=== PATIENT | male | born 1960 | race Caucasian/White ===

== ENCOUNTER 2019-07-11 16:47 | Emergency (ER) | payer OTHER ==
--- NOTE | 2019-07-11 17:44 | ED Physician Documentation ---
History of Present Illness - Stated complaint Stated Complaint: ABD PX, RECTAL BLEED - Chief complaint Chief Complaint: General - History obtained from History obtained from: Patient - History of Present Illness Timing: How many weeks ago (1) Pain level max: 5 Pain level now: 3 - Additonal information Additional information: 59-year-old male presents to the emergency department stating that he has had rectal pain for the past several days. This is accompanied by mostly bright red blood with bowel movements. He states he has had looser bowel movements over the past 2 days. Also having some lower abdominal pain now. No fevers. Nothing makes it better or worse. He is on Plavix at home. He is not feeling lightheaded, shortness of breath or chest pain. Review of Systems Ten Systems: 10 systems reviewed and negative Constitutional: denies: Fever, Chills Nose: denies: Rhinorrhea / runny nose, Congestion GI: denies: Nausea, Vomiting, Hematemesis Skin: denies: Rash Musculoskeletal: denies: Neck pain, Back pain Neurologic: denies: Headache PD PAST MEDICAL HISTORY - Past Medical History Past Medical History: Yes Cardiovascular: Hypertension, High cholesterol : Benign prostate hypertrophy - Past Surgical History Past Surgical History: Yes - Present Medications Home Medications: Ambulatory Orders Medication Instructions Recorded Confirmed Alfuzosin HCl [Alfuzosin HCl ER] 10 mg PO 07/11/19 Bp Med 07/11/19 Clopidogrel [Plavix] 75 mg PO ONCE 07/11/19 07/11/19 Glycerin Adult Supp 1 each IA DAILY PRN #10 supp 07/11/19 [place] 150 mg PO ONCE 07/11/19 07/11/19 Polyethylene Glycol 3350 [Miralax] 17 gm PO DAILY PRN #1 bottle 07/11/19 - Allergies Allergies/Adverse Reactions: Allergies Allergy/AdvReac Type Severity Reaction Status Date / Time No Known Drug Allergies Allergy Verified 07/11/19 16:57 - Social History Does the pt smoke?: No Smoking Status: Never smoker - Immunizations Immunizations are current?: Yes PD ED PE NORMAL - Vitals Vital signs reviewed: Yes - General General: Alert and oriented X 3, No acute distress, Well developed/nourished - HEENT HEENT: Moist mucous membranes - Neck Neck: Supple, no meningeal sign - Cardiac Cardiac: RRR - Respiratory Respiratory: No respiratory distress, Clear bilaterally - Abdomen Abdomen: Normal bowel sounds, Soft, Non tender, Non distended - Male Male : Other (Normal rectal exam other than a mildly inflamed internal hemorrhoid the 5 o'clock position.) - Derm Derm: Warm and dry - Extremities Extremities: No edema - Neuro Neuro: Alert and oriented X 3 - Psych Psych: Normal mood, Normal affect Results - Vitals Vitals: Vital Signs - 24 hr 07/11/19 07/11/19 07/11/19 16:55 18:35 19:13 Temperature 36.6 C Heart Rate 100 61 56 L Respiratory 18 18 18 Rate Blood Pressure 190/119 H 159/96 H 154/111 H O2 Saturation 99 97 98 07/11/19 19:24 Temperature Heart Rate Respiratory Rate Blood Pressure 156/98 H O2 Saturation Oxygen O2 Source Room air - Labs Labs: Laboratory Tests 07/11/19 07/11/19 07/11/19 17:45 17:45 17:45 WBC 9.8 RBC 4.51 L Hgb 14.5 Hct 44.3 MCV 98.2 H MCH 32.2 H MCHC 32.7 RDW 12.5 Plt Count 328 MPV 9.6 Neut # (Auto) 7.1 H Lymph # (Auto) 1.6 [place] # (Auto) 0.7 Eos # (Auto) 0.2 Baso # (Auto) 0.1 Absolute Nucleated RBC 0.00 Nucleated RBC % 0.0 PT 10.1 INR 0.9 APTT 26.0 Sodium 139 Potassium 4.6 Chloride 107 Carbon Dioxide 27 Anion Gap 5.0 L BUN 18 Creatinine 1.3 H Estimated GFR (MDRD) 57 L Glucose 113 H Calcium 9.7 Total Bilirubin 0.6 AST 25 ALT 39 Alkaline Phosphatase 70 Total Protein 7.8 Albumin 4.4 Globulin 3.4 Albumin/Globulin Ratio 1.3 Lipase 39 - Rads (name of study) CT abdomen and pelvis Radiology: Prelim report reviewed, EMP read contemporaneously, See rad report (1. No acute inflammatory process within the abdomen and pelvis. 2. Indeterminate 2.3 cm left renal cyst, possibly representing a hemorrhagic or proteinaceous cyst. Renal ultrasound recommended for further characterization. ) PD MEDICAL DECISION MAKING - ED course Complexity details: reviewed results, re-evaluated patient, considered differential, d/w patient ED course: Patient with what appears to be inflamed hemorrhoid. Will place on MiraLAX. We will also place on suppositories. He will continue sitz bath at home. We will hold steroids at this time. Patient informed of need to follow-up for the left renal cyst. He will obtain a renal ultrasound with his doctor for this. Patient is well-appearing, nontoxic. No anemia. No active bleeding. Patient counseled regarding signs and symptoms for which I believe and urgent re- evaluation would be necessary. Patient with good understanding of and agreement to plan and is comfortable going home at this time This document was made in part using voice recognition software. While efforts are made to proofread this document, sound alike and grammatical errors may occur. Hemorrhoid is not thrombosed and does not need incision and drainage Departure - Departure Disposition: 01 Home, Self Care Clinical Impression: Internal hemorrhoid, bleeding Condition: Good Instructions: ED Hematochezia Stable Follow-Up: Pierre Garibay MD [Primary Care Provider] - Within 1 week Prescriptions: Glycerin Adult Supp 1 each IA DAILY PRN #10 supp PRN Reason: Rectal pain Polyethylene Glycol 3350 [Miralax] 17 gm PO DAILY PRN #1 bottle PRN Reason: Constipation Comments: Follow-up with your doctor for further care. Return if you worsen. You can perform sitz baths to help with the inflammation. We also want to keep your stool soft and avoid constipation. You also have a renal cyst. This needs follow-up with an ultrasound with your doctor. Discharge Date/Time: 07/11/19 19:24
[2019-07-11 18:00] LABS: BASOPHILS # (AUTO) 0.1 10^3/uL (0.0-0.1); BASOPHILS % (AUTO) 0.6 %; EOSINOPHILS # (AUTO) 0.2 10^3/uL (0.0-0.7); EOSINOPHILS % (AUTO) 2.5 %; HGB - HEMOGLOBIN 14.5 g/dL (14.0-18.0); LYMPHOCYTES # (AUTO) 1.6 10^3/uL (1.5-3.5); LYMPHOCYTES % (AUTO) 16.4 %; MEAN CORPUSCULAR HEMOGLOBIN 32.2 pg (27.0-31.0); MEAN CORPUSCULAR HGB CONC 32.7 g/dL (32.0-36.0); MEAN CORPUSCULAR VOLUME 98.2 fL (80.0-94.0); MEAN PLATELET VOLUME 9.6 fL (7.4-11.4); MONOCYTES # (AUTO) 0.7 10^3/uL (0.0-1.0); NEUTROPHILS # (AUTO) 7.1 10^3/uL (1.5-6.6); NEUTROPHILS % (AUTO) 72.8 %; PLT - PLATELET COUNT 328 10^3/uL (130-450); RED BLOOD COUNT 4.51 10^6/uL (4.70-6.10); RED CELL DISTRIBUTION WIDTH 12.5 % (12.0-15.0); WHITE BLOOD COUNT 9.8 x10^3/uL (4.8-10.8)
[2019-07-11 18:06] LABS: INR 0.9 (0.8-1.2); PT - PROTHROMBIN TIME 10.1 secs (9.9-12.6)
[2019-07-11 18:16] LABS: ALBUMIN 4.4 g/dL (3.2-5.5); ALBUMIN/GLOBULIN RATIO 1.3 (1.0-2.2); BILIRUBIN,TOTAL 0.6 mg/dL (0.2-1.0); CALCIUM 9.7 mg/dL (8.5-10.3); CREATININE 1.3 mg/dL (0.6-1.2); TOTAL PROTEIN 7.8 g/dL (6.7-8.2)
[2019-07-11] MEDS ORDERED: IOVERSOL 320 100 ML VIAL IVP ONE ×2 (18:32→19:03)
--- NOTE | 2019-07-11 19:16 | CT Report ---
Reason: lower abd pain, rectal bleeding Procedure Date: 07/11/2019 Accession Number: [id number] / [id number] Procedure: CT - Abdomen/Pelvis W CPT Code: Final Report FULL RESULT: EXAM: CT ABDOMEN AND PELVIS EXAM DATE: 07/11/2019 07:00 PM. CLINICAL HISTORY: Lower abdomen pain, rectal bleeding. COMPARISONS: None. TECHNIQUE: Routine helical CT imaging was performed through the abdomen and pelvis. IV contrast: OPTIRAY 320. Enteric contrast: No. Reconstructions: Coronal and sagittal. In accordance with CT protocol optimization, one or more of the following dose reduction techniques were utilized for this exam: automated exposure control, adjustment of mA and/or KV based on patient size, or use of iterative reconstructive technique. FINDINGS: Lung Bases: Unremarkable. Liver: Normal. No masses. Gallbladder/Bile Ducts: Unremarkable. Spleen: No splenomegaly. There are a few splenic calcifications likely postinflammatory. Pancreas: Normal. Adrenal Glands: Normal. Kidneys: There is a 2.3 cm left renal cyst with attenuation value of 53 HU. A few additional smaller simple cysts are noted bilaterally. No hydronephrosis. Peritoneal Cavity/Bowel: Normal. No free fluid, free air or adenopathy. No masses or acute inflammatory process. The appendix is well visualized and normal. Pelvic Organs: Normal. The bladder and visualized pelvic organs are within normal limits. Vasculature: No aneurysms or other significant abnormality. Bones: No significant abnormality. Other: None. IMPRESSION: 1. No acute inflammatory process within the abdomen and pelvis. 2. Indeterminate 2.3 cm left renal cyst, possibly representing a hemorrhagic or proteinaceous cyst. Renal ultrasound recommended for further characterization. RADIA
[2019-07-11 19:25] VITALS: BP 156/98
== END 2019-07-11 19:24 | disposition home or self-care (01) ==
LOC: ED 16:47
DX: K64.8 Other hemorrhoids (principal); I10 Essential (primary) hypertension
CPT/HCPCS: 36415; 74177; 80053; 83690; 85025; 85610; 85730; 99284; Q9967

== ENCOUNTER 2020-03-17 11:45 | Outpatient (CLI) | payer OTHER | END 2020-03-17 11:46 | disposition home or self-care (01) | LOC: COV 11:45 | PROVIDERS: ATTEND Family Medicine | DX: R05 Cough (principal); R06.02 Shortness of breath; R53.83 Other fatigue; R09.81 Nasal congestion; J34.89 Other specified disorders of nose and nasal sinuses; Z20.822 Contact with and (suspected) exposure to COVID-19 ==

== ENCOUNTER 2020-03-23 08:44 | Inpatient (IN) | payer OTHER ==
--- NOTE | 2020-03-23 09:33 | ED Physician Documentation ---
History of Present Illness - Stated complaint Stated Complaint: SOA - Chief complaint Chief Complaint: Resp - History obtained from History obtained from: Patient - Additonal information Additional information: Patient comes emergency department for chief complaint of shortness of breath for about the last week. Patient states that he has a chronic cough from his GERD, which is actually getting better during the same timeframe, but that his employer was concerned about the cough and had him get seen last week and tested for Covid. Patient states this was negative. Pt states that over the past week, he has been noticing that he can hardly walk 50 feet without becoming severely winded and having to stop and rest. Patient states that he got up to go the bathroom last night and that just walking to the bathroom and back caused him to be so short of breath that he had to sit on the edge of his bed for several minutes and recover. Today, the patient tried to go to work, but when his boss and coworker saw how short of breath he was going around the job site, they told him to come here instead. The patient denies any fevers or chills. No shortness of breath at rest. No chest pain though he does feel somewhat of a discomfort in his substernal area when he ambulates. No pain or swelling in his legs that is unusual. Patient does have a history of DVT previously. The patient denies any sick contacts. He states he is normally fairly healthy and strong. No other complaints at this time. He states this is never happened to him before. Review of Systems Ten Systems: 10 systems reviewed and negative Constitutional: reports: Reviewed and negative Eyes: reports: Reviewed and negative Ears: reports: Reviewed and negative Nose: reports: Reviewed and negative Throat: reports: Reviewed and negative Cardiac: reports: Chest pain / pressure Respiratory: reports: Dyspnea, Cough GI: reports: Reviewed and negative : reports: Reviewed and negative Skin: reports: Reviewed and negative Musculoskeletal: reports: Reviewed and negative Neurologic: reports: Reviewed and negative Psychiatric: reports: Reviewed and negative Endocrine: reports: Reviewed and negative Immunocompromised: reports: Reviewed and negative PD PAST MEDICAL HISTORY - Past Medical History Cardiovascular: Hypertension, High cholesterol : Benign prostate hypertrophy - Past Surgical History Past Surgical History: Yes - Present Medications Home Medications: Ambulatory Orders Medication Instructions Recorded Confirmed Alfuzosin HCl [Alfuzosin HCl ER] 10 mg PO DAILY 07/11/19 03/23/20 Clopidogrel [Plavix] 75 mg PO DAILY 07/11/19 03/23/20 [place] 1,350 mg PO HS 07/11/19 03/23/20 Propranolol [Inderal] 10 mg PO DAILY 03/23/20 03/23/20 amLODIPine [Norvasc] 5 mg PO DAILY 03/23/20 03/23/20 - Allergies Allergies/Adverse Reactions: Allergies Allergy/AdvReac Type Severity Reaction Status Date / Time No Known Drug Allergies Allergy Verified 07/11/19 16:57 - Social History Does the pt smoke?: No Smoking Status: Never smoker Does the pt drink ETOH?: Yes Does the pt have substance abuse?: No - Immunizations Immunizations are current?: Yes PD ED PE NORMAL - Vitals Vital signs reviewed: Yes - General General: Alert and oriented X 3, No acute distress, Well developed/nourished - HEENT HEENT: Atraumatic, PERRL, EOMI, Moist mucous membranes - Neck Neck: Supple, no meningeal sign - Cardiac Cardiac: RRR, No murmur, Strong equal pulses - Respiratory Respiratory: No respiratory distress, Clear bilaterally - Abdomen Abdomen: Soft, Non tender, Non distended - Derm Derm: Normal color, Warm and dry, No rash - Extremities Extremities: No deformity, No edema, No calf tenderness / cord - Neuro Neuro: Alert and oriented X 3, Other (Grossly normal.) - Psych Psych: Normal mood, Normal affect Results - Vitals Vitals: Oxygen O2 Source Nasal cannula - EKG (time done) 1000 Rate: Rate (enter#) (83) Rhythm: NSR Center Point: Normal, Anterior hemiblock Intervals: Normal IA QRS: LVH, Poor R wave progression Ischemia: Normal ST segments, Hyperacute T waves Compare to prior EKG: Old EKG unavailable Computer interpretation: Agree with computer - Labs Labs: Laboratory Tests 03/23/20 03/23/20 03/23/20 09:40 09:40 09:40 WBC 11.8 H RBC 4.68 L Hgb 14.9 Hct 44.5 MCV 95.1 H MCH 31.8 H MCHC 33.5 RDW 12.6 Plt Count 252 MPV 9.6 Neut # (Auto) 9.5 H Lymph # (Auto) 1.2 L [place] # (Auto) 0.8 Eos # (Auto) 0.2 Baso # (Auto) 0.1 Absolute Nucleated RBC 0.00 Nucleated RBC % 0.0 Whole Blood INR 0.9 D-Dimer Anti-Xa Level Sodium 137 Potassium 4.5 Chloride 107 Carbon Dioxide 21 Anion Gap 9.0 BUN 20 Creatinine 1.3 H Estimated GFR (MDRD) 57 L Glucose 114 H Calcium 9.8 Total Bilirubin 1.0 AST 25 ALT 32 Alkaline Phosphatase 88 Troponin I High Sens B-Natriuretic Peptide Total Protein 7.5 Albumin 3.9 Globulin 3.6 Albumin/Globulin Ratio 1.1 Lipase 36 Nasal Adenovirus (PCR) Nasal B. parapertussis DNA (PCR) Nasal Coronavir 229E PCR Nasal Coronavir HKU1 PCR Nasal Coronavir NL63 PCR Nasal Coronavir OC43 PCR Nasal Enterovir/Rhinovir PCR Nasal Influenza B PCR Nasal Influenza A PCR Nasal Parainfluen 1 PCR Nasal Parainfluen 2 PCR Nasal Parainfluen 3 PCR Nasal Parainfluen 4 PCR Nasal RSV (PCR) Nasal B.pertussis DNA PCR Nasal C.pneumoniae (PCR) [place] Human Metapneumo PCR Nasal M.pneumoniae (PCR) Nasal SARS-CoV-2 (PCR) 03/23/20 03/23/20 03/23/20 09:40 09:40 09:40 WBC RBC Hgb Hct MCV MCH MCHC RDW Plt Count MPV Neut # (Auto) Lymph # (Auto) [place] # (Auto) Eos # (Auto) Baso # (Auto) Absolute Nucleated RBC Nucleated RBC % Whole Blood INR D-Dimer 835.4 H Anti-Xa Level Sodium Potassium Chloride Carbon Dioxide Anion Gap BUN Creatinine Estimated GFR (MDRD) Glucose Calcium Total Bilirubin AST ALT Alkaline Phosphatase Troponin I High Sens 69.1 H* B-Natriuretic Peptide 102 H Total Protein Albumin Globulin Albumin/Globulin Ratio Lipase Nasal Adenovirus (PCR) Nasal B. parapertussis DNA (PCR) Nasal Coronavir 229E PCR Nasal Coronavir HKU1 PCR Nasal Coronavir NL63 PCR Nasal Coronavir OC43 PCR Nasal Enterovir/Rhinovir PCR Nasal Influenza B PCR Nasal Influenza A PCR Nasal Parainfluen 1 PCR Nasal Parainfluen 2 PCR Nasal Parainfluen 3 PCR Nasal Parainfluen 4 PCR Nasal RSV (PCR) Nasal B.pertussis DNA PCR Nasal C.pneumoniae (PCR) [place] Human Metapneumo PCR Nasal M.pneumoniae (PCR) Nasal SARS-CoV-2 (PCR) 03/23/20 03/23/2021 12:00 13:18 13:18 WBC RBC Hgb Hct MCV MCH MCHC RDW Plt Count MPV Neut # (Auto) Lymph # (Auto) [place] # (Auto) Eos # (Auto) Baso # (Auto) Absolute Nucleated RBC Nucleated RBC % Whole Blood INR D-Dimer Anti-Xa Level 0.6 Sodium Potassium Chloride Carbon Dioxide Anion Gap BUN Creatinine Estimated GFR (MDRD) Glucose Calcium Total Bilirubin AST ALT Alkaline Phosphatase Troponin I High Sens 62.8 H* B-Natriuretic Peptide Total Protein Albumin Globulin Albumin/Globulin Ratio Lipase Nasal Adenovirus (PCR) NOT DETECTED Nasal B. parapertussis DNA (PCR) NOT DETECTED Nasal Coronavir 229E PCR NOT DETECTED Nasal Coronavir HKU1 PCR NOT DETECTED Nasal Coronavir NL63 PCR NOT DETECTED Nasal Coronavir OC43 PCR NOT DETECTED Nasal Enterovir/Rhinovir PCR NOT DETECTED Nasal Influenza B PCR NOT DETECTED Nasal Influenza A PCR NOT DETECTED Nasal Parainfluen 1 PCR NOT DETECTED Nasal Parainfluen 2 PCR NOT DETECTED Nasal Parainfluen 3 PCR NOT DETECTED Nasal Parainfluen 4 PCR NOT DETECTED Nasal RSV (PCR) NOT DETECTED Nasal B.pertussis DNA PCR NOT DETECTED Nasal C.pneumoniae (PCR) NOT DETECTED [place] Human Metapneumo PCR NOT DETECTED Nasal M.pneumoniae (PCR) NOT DETECTED Nasal SARS-CoV-2 (PCR) NOT DETECTED - Rads (name of study) CXR Radiology: Final report received, EMP read indepedently, See rad report CTA chest Radiology: Final report received, EMP read indepedently, See rad report (Multiple pulmonary emboli.) PD MEDICAL DECISION MAKING - ED course Complexity details: reviewed results, re-evaluated patient, considered differential, d/w patient ED course: The patient was fairly well-appearing, but I was concerned about his story, and feel he should be worked up. Additionally, the patient had been found to have an oxygen saturation of upper 80s in triage, prior to being placed on supplemental oxygen. He was worked up with labs, EKG, and chest x-ray. D-dimer was over 800. As such, pt was With CT angiogram of the chest, which showed multiple bilateral pulmonary emboli. No evidence of right heart strain noted. Some pneumonitis was noted on CT. Patient was given 1.5 mg/kg of Lovenox. I spoke with Dr. Longoria, who did agree to admit the patient to his service. Departure - Departure Disposition: 66 [facility] DC/Xfer Clinical Impression: Pulmonary emboli Qualifiers: Pulmonary embolism type: multiple subsegmental (without acute cor pulmonale) Qualified Code(s): I26.94 - Multiple subsegmental pulmonary emboli without acute cor pulmonale Condition: Serious Discharge Date/Time: 03/23/20 15:02
--- NOTE | 2020-03-23 09:51 | XRAY Report ---
PROCEDURE: Chest 1 View X-Ray INDICATIONS: chest pain TECHNIQUE: One view of the chest was acquired. COMPARISON: FINDINGS: Surgical changes and devices: None. Lungs and pleura: No pleural effusions or pneumothorax. Subtle increased opacification noted in the right lung base. Mediastinum: Mediastinal contours appear normal. Heart size is normal. Bones and chest wall: No suspicious bony lesions. Overlying soft tissues appear unremarkable. IMPRESSION: Subtle increased opacification of the right lung base which could represent atelectasis or pneumonia. Reviewed by: Christy Perez MD, PhD on 03/23/2020 9:50 AM [facility] Approved by: Christy Preez MD, PhD on 03/23/2020 9:50 AM [facility] Station ID: [id number]
[2020-03-23 09:52] LABS: BASOPHILS # (AUTO) 0.1 10^3/uL (0.0-0.1); BASOPHILS % (AUTO) 0.4 %; EOSINOPHILS # (AUTO) 0.2 10^3/uL (0.0-0.7); EOSINOPHILS % (AUTO) 1.6 %; HGB - HEMOGLOBIN 14.9 g/dL (14.0-18.0); LYMPHOCYTES # (AUTO) 1.2 10^3/uL (1.5-3.5); LYMPHOCYTES % (AUTO) 10.2 %; MEAN CORPUSCULAR HEMOGLOBIN 31.8 pg (27.0-31.0); MEAN CORPUSCULAR HGB CONC 33.5 g/dL (32.0-36.0); MEAN CORPUSCULAR VOLUME 95.1 fL (80.0-94.0); MEAN PLATELET VOLUME 9.6 fL (7.4-11.4); MONOCYTES # (AUTO) 0.8 10^3/uL (0.0-1.0); MONOCYTES % (AUTO) 6.8 %; NEUTROPHILS # (AUTO) 9.5 10^3/uL (1.5-6.6); NEUTROPHILS % (AUTO) 80.5 %; PLT - PLATELET COUNT 252 10^3/uL (130-450); RED BLOOD COUNT 4.68 10^6/uL (4.70-6.10); RED CELL DISTRIBUTION WIDTH 12.6 % (12.0-15.0); WHITE BLOOD COUNT 11.8 x10^3/uL (4.8-10.8)
[2020-03-23 10:03] LABS: ALBUMIN 3.9 g/dL (3.2-5.5); ALBUMIN/GLOBULIN RATIO 1.1 (1.0-2.2); CALCIUM 9.8 mg/dL (8.5-10.3); CREATININE 1.3 mg/dL (0.6-1.2); TOTAL PROTEIN 7.5 g/dL (6.7-8.2)
[2020-03-23] MEDS ORDERED: IOVERSOL 320 100 ML VIAL IVP ONE ×2 (10:41→14:08)
[2020-03-23] MEDS ORDERED: ENOXAPARIN 100 MG/ML SYRINGE SUBQ STA (11:21)
--- NOTE | 2020-03-23 11:39 | CT Report ---
PROCEDURE: ANGIO CHEST W/WO INDICATIONS: chest pain, sob, elevated d-dimer CONTRAST: IV CONTRAST: Optiray 320 ml: 80 PO CONTRAST: *NO PO CONTRAST TECHNIQUE: After the administration of intravenous contrast, 2 mm thick sections acquired from the pulmonary api leia to the posterior costophrenic angles. 3-dimensional maximum intensity projection (MIP) coronal a nd sagittal reformats were then acquired through the thorax. For radiation dose reduction, the follow ing was used: automated exposure control, adjustment of mA and/or kV according to patient size. COMPARISON: Chest radiograph dated 03/23/2020 FINDINGS: Image quality: Excellent. Pulmonary arteries: Pulmonary arteries are normal in size. Extensive filling defects are seen in dis carlos bilateral main pulmonary arteries extending to bilateral segmental and subsegmental branches of p ulmonary arteries. Lungs and pleura: Ill-defined patchy hazy groundglass opacities are noted scattered in posterior aspe ct of bilateral upper lobes and right middle lobe as well as posterior medial aspect of right lower l obe. No pleural effusions or pneumothorax. Central and peripheral airways are patent. Mediastinum: Heart size is mildly enlarged, without pericardial effusion. No mediastinal or hilar a denopathy. Thoracic aorta is normal in caliber and enhancement. Esophagus is normal in caliber, wit h a small hiatal hernia. Bones and chest wall: No suspicious bony lesions. Degenerative disc disease throughout thoracic spin e is seen. No compression fracture or spondylolisthesis. The thyroid is normal. No axillary or supr aclavicular adenopathy. Abdomen: Visualized upper abdominal solid organs appear normal in the early arterial phase of enhanc ement. Hepatic steatosis is seen. IMPRESSION: 1. Fairly extensive pulmonary emboli in distal bilateral main pulmonary arteries extending to segment al and subsegmental branches of bilateral pulmonary arteries. No thoracic aortic aneurysm. 2. Scattered groundglass opacities in bilateral lung orr as above, suggestive of scattered areas o f patchy pneumonitis. No pleural effusion or pneumothorax. Airway is patent. 3. Cardiomegaly, no pericardial effusion. No mediastinal or hilar lymphadenopathy by size criteria. 4. Small hiatal hernia and hepatic steatosis. Reviewed by: Сергей Godfrey MD on 03/23/2020 11:37 AM PST Approved by: Сергей Godfrey MD on 03/23/2020 11:37 AM PST Station ID: [id number]
--- NOTE | 2020-03-23 12:21 | Ultrasound Report ---
PROCEDURE: Duplex Ext Veins Bilateral INDICATIONS: Kristin Smith TECHNIQUE: Real-time imaging, as well as color and pulse Doppler interrogation, were performed of the deep veins of both legs from the inguinal ligament to the popliteal fossa. COMPARISON: None FINDINGS: There is chronic appearing nonocclusive eccentric thrombus within the right popliteal vein extending inferiorly into the veins of the calf. Within the left popliteal vein there is acute appear ing fully occlusive thrombus which extends into the calf veins. IMPRESSION: Acute appearing fully occlusive thrombus in the left popliteal vein extending inferiorly into the vei ns of the calf. Chronic appearing nonocclusive eccentric thrombus within the right popliteal vein extending inferiorl y into the veins of the calf. Reviewed by: Man Martinez MD on 03/23/2020 12:20 PM PST Approved by: Man Martinez MD on 03/23/2020 12:20 PM PST Station ID: [id number]
[2020-03-23] MEDS ORDERED: ONDANSETRON 4 MG/2 ML VIAL IVP PRN (13:49)
[2020-03-23 13:51] LABS: C. PNEUMONIAE- RESP PCR PANEL NOT DETECTED
--- NOTE | 2020-03-23 13:57 | HISTORY & PHYSICAL EXAMINATION ---
Chief Complaint - Chief Complaint Chief Complaint: SOB History of Present Illness - Admitted From Admitted From:: Er - History Obtained From Records Reviewed: [facility] History obtained from: pt Exam Limitations: now - History of Present Illness HPI Comment/Other: This is 59 years old male with a past medical history of hypertension, hyperlipidemia, GERD, history of right lower extremity DVT, BPH, Bipolar, Who present to ER complain shortness of breathing. Patient reported he has shortness of breathing about couple weeks but this 2- 3 days he feels very short of breathing, even difficulty to go to the bathroom. He denies fever or chill, Chest pain. he report he have chronic cough from his GERD. His COVID-19 test is negative. He report reported 10 years ago he had a DVT on his right lower extremity, But the patient has no any anticoagulation medicine in his home medication list. Routine laboratory tests that show he had a elevated troponin but continued troponin flat, EKG did not the suggestion of myocardial ischemia or ST variation. Creatinine 1.3 is at his baseline. Patient had slightly elevated WBC at 11, D-dimer 830. CTA of the chest show Fairly extensive Pulmonary emboli in distal bilaterally main pulmonary artery extending to Segmental and subsegmental branches of the bilateral pulmonary arteries, Sca ttered area of patched pneumonitis, chest x-ray indicated pneumonia. Ultrasound of bilaterally Lower extremity Show chronic right lower extremity DVT and an acute left lower extremity DVT. Given above patient medical condition, hospitalist team was consulted for admission. Discussed the care goal with the patient, patient requests full code History - Past Medical History Cardiovascular: reports: Hypertension, High cholesterol : reports: Benign prostate hypertrophy MRSA Hx?: No - Family & Social History Family History: Mother: Alive and Well, Father: Family History Comment/Other: Patient reported he does not know his biological father medical history, he report his mother is still alive And healthy Social History Notes: Patient denies history of cigarette smoking, alcohol a buse, drug addiction, he reported he with 3 children, he lives in [facility] Meds/Allgy - Home Medications Home Medications: Ambulatory Orders Medication Instructions Recorded Confirmed Alfuzosin HCl [Alfuzosin HCl ER] 10 mg PO DAILY 07/11/19 03/23/20 Clopidogrel [Plavix] 75 mg PO DAILY 07/11/19 03/23/20 [place] 1,350 mg PO HS 07/11/19 03/23/20 Propranolol [Inderal] 10 mg PO DAILY 03/23/20 03/23/20 amLODIPine [Norvasc] 5 mg PO DAILY 03/23/20 03/23/20 - Allergies Allergies/Adverse Reactions: Allergies Allergy/AdvReac Type Severity Reaction Status Date / Time No Known Drug Allergies Allergy Verified 07/11/19 16:57 Review of Systems - Constitutional Constitutional: reports: Weakness. denies: Fatigue, Fever, Chills, Malaise, Poor appetite, Diaphoresis, Night sweats - Eyes Eyes: denies: Pain, Blurred vision, Field loss, Vision loss - Ears, Nose & Throat Ears, Nose & Throat: denies: Ear pain, Vertigo, Nosebleeds, Mouth lesions, Bleeding gums - Cardiovascular Cariovascular: reports: Exertional dyspnea, Decr. exercise tolerance. denies: Irregular heart rate, Palpitations, Chest pain, Edema, Lightheadedness, Syncope - Respiratory Respiratory: reports: Cough, SOB with exertion. denies: Sputum production, Wheezing, Snoring, Hemoptysis, Orthopnea, SOB at rest - Gastrointestinal Gastrointestinal: denies: Abdominal pain, Constipation, Diarrhea, Change in bowel habits, Rectal bleeding, Black stools, Bloody stools, Nausea, Vomiting, Bile emesis, [place] blood emesis - Genitourinary Genitourinary: denies: Dysuria, Urgency, Incontinence - Musculoskeletal Musculoskeletal: denies: Muscle pain, Muscle aches, Limited range of motion - Integumentary Integumentary: denies: Rash, Lesions, Pigment changes - Neurological Neurological: denies: Focal weakness, Headache, Dizziness, Numbness, Pre- existing deficit, Abnormal gait, Seizures, Incoordination, Slurred speech - Psychiatric Psychiatric: denies: Depression, Suicidal, Delusions - Endocrine Endocrine: denies: Polyuria, Polyphagia - Hematologic/Lymphatic Hematologic/Lymphatic: denies: Anemia, Petechiae Prior Level of Functionality: Patient is independent Exam - Vital Signs Vital Signs: Vital Signs x48h Temp Pulse Resp BP Pulse Ox 03/23/20 13:00 99 23 144/94 H 92 03/23/20 11:03 82 22 199/135 H 95 03/23/20 09:04 85 18 172/120 H 96 03/23/20 08:48 37.3 C 86 26 H 179/133 H 89 L - Physical Exam General Appearance: positive: No acute distress, Alert. negative: Lethargic Eyes Bilateral: positive: Normal inspection, PERRL, No lid inflammation ENT: positive: ENT inspection nml, No signs of dehydration. negative: Purulent nasal drainage Neck: positive: Nml inspection, Trachea midline. negative: Thyromegaly, Tracheal deviation Respiratory: positive: Chest non-tender, Rhonchi. negative: Breath sounds nml, Wheezes, Rales Cardiovascular: positive: Regular rate & rhythm. negative: No murmur, Tachycardia, Bradycardia, Systolic murmur, Diastolic murmur Peripheral Pulses: positive: 2+ Abdomen: positive: Non-tender, Nml bowel sounds, No distention. negative: Ten derness, Guarding, Rebound Back: positive: Nml inspection. negative: CVA tenderness (R), CVA tenderness (L) Skin: positive: Color nml, Warm, Dry. negative: Cyanosis, Diaphoresis, Pallor Extremities: positive: Non-tender, Full ROM, Nml appearance. negative: Pedal edema Neurologic/Psychiatric: positive: Oriented x3, Motor nml, Sensation nml, Mood/affect nml. negative: Weakness, Sensory loss, Facial droop, Slurred/abnml speech, Depressed mood/affect Sepsis Event Note (H) - Evaluation Current Stage of Sepsis: Ruled out Conclusion/Plan - Problem List (1) Respiratory failure with hypoxia Conclusion/Plan: Patient clinically show shortness of breathing, COVID-19 test is negative, CTA showed extensive PE and with pneumonia. We will treat heparin drip for PE, with antibiotics for pneumonia. Continue supplemental oxygen as needed, Continue vital signs and laboratory phlebotomist (2) Pulmonary emboli Conclusion/Plan: CTA show extensive PE in main pulmonary artery, echo study show patient has no right heart strain. Ultrasound of bilateral lower extremities show left-sided has an acute DVT and in the right side show chronic DVT. Patient has a history of right lower extremity DVT in the past. Patient may need anticoagulation study as outpatient setting. Patient denies chest pain. We will use heparin drip vero ated for pulmonary embolism. Continue lab and vital signs monitor patient. Qualifiers: Pulmonary embolism type: multiple subsegmental (without acute cor pulmonale) Qualified Code(s): I26.94 - Multiple subsegmental pulmonary emboli without acute cor pulmonale (3) Pneumonia Conclusion/Plan: Patient had slightly elevated WBC, clinical patient has showed shortness of breathing, Patient had 92% sats on 4 L oxygen, CTA and chest x-ray both show patient has Pneumonia. We will treat the patient with community acquired pneumonia with azithromycin and Rocephin, supplemental oxygen as needed, continue laboratory and vital signs monitor patient (4) Elevated troponin Conclusion/Plan: Patient had elevated troponin, repeat troponin is reduced and the flat, EKG does not suggestion myocardial ischemia or ST variation. Patient denies chest pain. It is likely distress from patient PE. Continue telemetry and vital signs monitor (5) HTN (hypertension) Conclusion/Plan: Patient had elevated blood pressure, we will resume home blood pressure medicine and vital signs monitor (6) Bipolar 1 disorder Conclusion/Plan: Patient has a history of bipolar, we will resume patient home medication lithium, check lithium concentration is in the therapeutic range (7) GERD (gastroesophageal reflux disease) Conclusion/Plan: Patient has a history of GERD, we will start with Protonix - Lab Results Fish Bones: 03/23/20 09:40 03/23/20 09:40 Core Measures - Anticipated LOS I expect patient to be DC'd or transferred within 96 hours.: Yes - DVT/VTE - Prophylaxis VTE/DVT Device ordered at admit?: Yes VTE/DVT Prophylaxis med ordered at admit?: Yes
[2020-03-23] MEDS ORDERED: amLODIPine 5 MG TABLET PO SCH (14:00)
[2020-03-23] MEDS ORDERED: ALBUTEROL NEB 2.5 MG/3 ML INH PRN (15:28)
[2020-03-23 15:29] LABS: LITHIUM 0.61 mmol/L
--- NOTE | 2020-03-23 16:45 | PHARMACY PROGRESS NOTE ---
- Best Possible Medication History Admit Date and Time: 03/23/20 7047 Processed by: Pharmacy Medication History completed: Yes Patient Interview: Pt interview ONLY source (INTERVIEWED PATIENT MYSELF) Patient able to review medication list with me and clarify medication. Am lodipine and clopidegrel are taken daily. Does not take Miralax. As the person ultimately responsible for medication therapy, providers are able to order a medication from an existing home medication list in [facility] via the "Reconcile Routine" prior to Confirmation of that medication by aviation support equipment repairer. Such practice is discouraged except when the physician, in their clinical judgment, deems that a medical need exists for a medication without regard to previous use.
[2020-03-23] MEDS: HEPARIN 25000UNITS/500ML (D5W) 25,000 UNIT/500 ML BAG IV SCH (17:14)
[2020-03-23] MEDS: SODIUM CHLORIDE FLUSH 0.9% 10 ML SYRINGE IVP SCH (17:19)
[2020-03-23] MEDS: PANTOPRAZOLE 40 MG TABLET PO SCH (18:12)
[2020-03-23] MEDS: AZITHROMYCIN INJ 500 MG in SODIUM CHLORIDE 0.9% 250 ML IV SCH (18:24)
[2020-03-23] MEDS: PROPRANOLOL 10 MG TABLET PO SCH (18:24)
[2020-03-23] MEDS: SODIUM CHLORIDE FLUSH 0.9% 10 ML SYRINGE IVP PRN ×2 (18:24→19:50)
[2020-03-23] MEDS: LITHIUM 150 MG CAPSULE PO SCH (20:44)
[2020-03-24] MEDS: SODIUM CHLORIDE FLUSH 0.9% 10 ML SYRINGE IVP SCH ×3 (00:20→17:11)
[2020-03-24] MEDS: PANTOPRAZOLE 40 MG TABLET PO SCH (06:39)
[2020-03-24] MEDS: ACETAMINOPHEN 325 MG TABLET PO PRN ×2 (06:39→14:10)
[2020-03-24 06:48] LABS: BASOPHILS # (AUTO) 0.1 10^3/uL (0.0-0.1); BASOPHILS % (AUTO) 0.5 %; EOSINOPHILS # (AUTO) 0.2 10^3/uL (0.0-0.7); EOSINOPHILS % (AUTO) 2.6 %; HGB - HEMOGLOBIN 13.9 g/dL (14.0-18.0); LYMPHOCYTES # (AUTO) 1.8 10^3/uL (1.5-3.5); LYMPHOCYTES % (AUTO) 20.1 %; MEAN CORPUSCULAR HEMOGLOBIN 31.7 pg (27.0-31.0); MEAN CORPUSCULAR HGB CONC 33.3 g/dL (32.0-36.0); MEAN CORPUSCULAR VOLUME 95.4 fL (80.0-94.0); MEAN PLATELET VOLUME 9.9 fL (7.4-11.4); MONOCYTES # (AUTO) 0.7 10^3/uL (0.0-1.0); MONOCYTES % (AUTO) 8.1 %; NEUTROPHILS # (AUTO) 6.2 10^3/uL (1.5-6.6); NEUTROPHILS % (AUTO) 68.3 %; PLT - PLATELET COUNT 249 10^3/uL (130-450); RED BLOOD COUNT 4.38 10^6/uL (4.70-6.10); RED CELL DISTRIBUTION WIDTH 12.6 % (12.0-15.0); WHITE BLOOD COUNT 9.2 x10^3/uL (4.8-10.8)
[2020-03-24 06:52] LABS: CALCIUM 9.5 mg/dL (8.5-10.3); CREATININE 1.4 mg/dL (0.6-1.2)
[2020-03-24] MEDS ORDERED: PANTOPRAZOLE 40 MG TABLET PO SCH (07:00)
[2020-03-24] MEDS: PROPRANOLOL 10 MG TABLET PO SCH (08:44)
[2020-03-24] MEDS: cefTRIAXone 2 GM in SODIUM CHLORIDE 0.9% MINIBAG 100 ML IV SCH (08:45)
[2020-03-24] MEDS: ALFUZOSIN HCL 10 MG PO SCH (08:55)
[2020-03-24] MEDS ORDERED: PROPRANOLOL 10 MG TABLET PO SCH (09:00)
[2020-03-24] MEDS ORDERED: SODIUM CHLORIDE 0.9% 1,000 ML IV SCH (09:00)
[2020-03-24] MEDS: AZITHROMYCIN INJ 500 MG in SODIUM CHLORIDE 0.9% 250 ML IV SCH (09:28)
[2020-03-24] MEDS: oxyCODONE 5 MG TABLET PO PRN ×2 (09:30→17:19)
[2020-03-24] MEDS: HEPARIN 25000UNITS/500ML (D5W) 25,000 UNIT/500 ML BAG IV SCH (14:07)
--- NOTE | 2020-03-24 15:37 | PROVIDER PROGRESS NOTE ---
Assessment/Plan - Problem List (1) Respiratory failure with hypoxia Assessment/Plan: 03/24 Patient reported he is shortness of breathing is better, He feel significantly reduced his shortness of breathing. But the patient still need 4 liter of O2 oxygen to support 92% sats. Patient is not Tachypneic. WBC become normal Range. We will continue use heparin drip for PE, continue with antibiotics for pneumonia Patient clinically show shortness of breathing, COVID-19 test is negative, CTA showed extensive PE and with pneumonia. We will treat heparin drip for PE, with antibiotics for pneumonia. Continue supplemental oxygen as needed, Continue vital signs and blood bank laboratory technician (2) Pulmonary emboli Conclusion/Plan: 113, patient feels better for his breathing. We will continue heparin drip, continue supplemental oxygen as needed CTA show extensive PE in main pulmonary artery, echo study show patient has no right heart strain. Ultrasound of bilateral lower extremities show left-sided has an acute DVT and in the right side show chronic DVT. Patient has a history of right lower extremity DVT in the past. Patient may need anticoagulation study as outpatient setting. Patient denies chest pain. We will use heparin drip treated for pulmonary embolism. Continue lab and vital signs monitor patient. (3) Pneumonia Conclusion/Plan: 113, We will continue antibiotics, continue supplement monitor oxygen as needed Patient had slightly elevated WBC, clinical patient has showed shortness of breathing, Patient had 92% sats on 4 L oxygen, CTA and chest x-ray both show patient has Pneumonia. We will treat the patient with community acquired pneumonia with azithromycin and Rocephin, supplemental oxygen as needed, continue laboratory and vital signs monitor patient (4) Elevated troponin Conclusion/Plan: Patient had elevated troponin, repeat troponin is reduced and the flat, EKG does not suggestion myocardial ischemia or ST variation. Patient denies chest pain. It is likely distress from patient PE. Continue telemetry and vital signs monitor (5) HTN (hypertension) Conclusion/Plan: Patient had elevated blood pressure, we will resume home blood pressure medicine and vital signs monitor (6) Bipolar 1 disorder Conclusion/Plan: Patient has a history of bipolar, we will resume patient home medication lithium, check lithium concentration is in the therapeutic range (7) GERD (gastroesophageal reflux disease) Conclusion/Plan: Patient has a history of GERD, we will start with Protonix (2) Pulmonary emboli Qualifiers: Pulmonary embolism type: multiple subsegmental (without acute cor pulmonale) Qualified Code(s): I26.94 - Multiple subsegmental pulmonary emboli without acute cor pulmonale - Current Meds Current Meds: Current Medications Generic Name Dose Route Start Last Admin Trade Name Freq PRN Reason Stop Dose Admin Acetaminophen 650 mg 03/23/20 13:49 03/24/20 14:10 Acetaminophen 325 Mg Tablet PO 650 mg Q4HR PRN Administration Pain 1 to 4 Heparin Sodium/Dextrose 25,000 unit in 500 mls @ 28.849 mls/hr 03/23/20 17:00 03/24/20 14:07 IV 11 unit/kg/hr .[id number] SHANNON 21.156 mls/hr Administration Protocol 15 UNIT/KG/HR Azithromycin 500 mg/ Sodium 250 mls @ 250 mls/hr 03/23/20 17:53 03/24/20 11:25 Chloride IV 03/25/20 09:59 Infused DAILY SHANNON Infusion Ceftriaxone Sodium 2 gm/ 100 mls @ 200 mls/hr 03/24/20 09:00 03/24/20 09:20 Sodium Chloride IV 03/28/20 09:29 Infused DAILY SHANNON Infusion Sodium Chloride 1,000 mls @ 83.333 mls/hr 03/24/20 09:00 03/24/20 08:45 Normal Saline 0.9% IV 03/24/20 20:59 83.333 mls/hr .Q12H SHANNON Administration [place] Carbonate 1,350 mg 03/23/20 21:00 03/23/20 20:44 [place] 150 Mg Capsule PO 1,350 mg HS SHANNON Administration Non-Formulary Medication 10 mg 03/24/20 09:00 03/24/20 08:55 Alfuzosin Hcl [Alfuzosin Hcl Er] PO Not Given DAILY SHANNON Oxycodone HCl 5 mg 03/24/20 09:14 03/24/20 09:30 Oxycodone 5 Mg Tablet PO 5 mg Q4HR PRN Administration PAIN Pantoprazole Sodium 40 mg 03/23/20 17:33 03/24/20 06:39 Pantoprazole 40 Mg Tablet PO 40 mg QDAC SHANNON Administration Propranolol HCl 10 mg 03/23/20 18:05 03/24/20 08:44 Propranolol 10 Mg Tablet PO 10 mg DAILY SHANNON Administration Sodium Chloride 10 ml 03/23/20 13:49 03/23/20 19:50 Sodium Chloride Flush 0.9% 10 Ml Syringe IVP 10 ml PRN PRN Administration NEEDED PER PROVIDER ORDERS Sodium Chloride 10 ml 03/23/20 17:00 03/24/20 08:45 Sodium Chloride Flush 0.9% 10 Ml Syringe IVP 10 ml 0100,0900,1700 SHANNON Administration - Lab Result Fish Bone Diagrams: 03/24/20 06:15 03/24/20 06:15 - Additional Planning My Orders: My Active Orders 03/23/20 15:28 Nebulizer/MDI Tx. [RC] .Q4PRN Resp Teach Nebulizer/MDI [RC] .ONCE Albuterol 2.5 mg INH RTQ4H PRN 03/23/20 17:00 Heparin 70584HOSUX/500Ml (D5w) 25,000 unit in 500 ml IV 15 unit/kg/hr Sodium Chloride Flush 0.9% [Normal Saline Flush 0.9%] 10 ml IVP 0100,0900,1700 03/23/20 17:33 Pantoprazole [Protonix] 40 mg PO QDAC 03/23/20 17:53 Azithromycin Inj [Zithromax Inj] 500 mg Sodium Chloride 0.9% [Normal Saline 0.9%] 250 ml IV DAILY 03/23/20 18:05 Propranolol [Inderal] 10 mg PO DAILY 03/23/20 18:29 CULTURE, BLOOD #1 [RM] Routine 03/23/20 18:34 CULTURE, BLOOD #2 [RM] Routine 03/23/20 21:00 [place] 1,350 mg PO HS 03/24/20 09:00 Alfuzosin HCl [Alfuzosin HCl ER] 10 mg PO DAILY Sodium Chloride 0.9% [Normal Saline 0.9%] 1,000 ml IV 83.333 mls/hr cefTRIAXone [Rocephin] 2 gm Sodium Chloride 0.9% Minibag [Normal Saline 0.9% Minibag] 100 ml IV DAILY 03/24/20 09:14 oxyCODONE [Roxicodone] 5 mg PO Q4HR PRN 03/24/20 19:15 Anti Xa [FACTOR XA] [COAG] Routine 03/25/20 05:00 BMP - BASIC METABOLIC PANEL [CHEM] DAILYLAB CBC - COMP BLD CT W/AUTO DIFF [HEME] DAILYLAB 01/15/21 05:00 BMP - BASIC METABOLIC PANEL [CHEM] DAILYLAB CBC - COMP BLD CT W/AUTO DIFF [HEME] DAILYLAB 03/27/20 05:00 BMP - BASIC METABOLIC PANEL [CHEM] DAILYLAB CBC - COMP BLD CT W/AUTO DIFF [HEME] DAILYLAB 03/28/20 05:00 BMP - BASIC METABOLIC PANEL [CHEM] DAILYLAB CBC - COMP BLD CT W/AUTO DIFF [HEME] DAILYLAB Subjective - Subjective Patient Reports: Feeling Better Objective Vital Signs: Vital Signs - 24 hr 03/23/20 03/24/20 03/24/20 19:55 01:00 06:11 Temperature 36.6 C 36.9 C 36.7 C Heart Rate [ 81 72 63 Monitoring electrodes] Respiratory 18 20 18 Rate Blood Pressure 127/88 H 141/93 H 144/87 H [Right Brachial artery] O2 Saturation 94 94 90 L 03/24/20 03/24/20 03/24/20 06:42 07:53 13:00 Temperature 36.4 C L 36.6 C Heart Rate [ 70 76 Monitoring electrodes] Respiratory 20 22 21 Rate Blood Pressure 135/99 H 138/94 H [Right Brachial artery] O2 Saturation 92 92 91 L Oxygen O2 Source Nasal cannula I&O (Last 24 Hrs): Intake and Output Totals x24h 03/22/20 03/23/20 03/24/20 23:59 23:59 23:59 Intake Total 558.842 9027.990 Output Total 2500 1250 Balance -1776.425 5.990 General: Alert, Oriented x3, Cooperative, No acute distress HEENT: Atraumatic Neck: Supple Lymphatic: no adenopathy Neuro: Alert, Non Focal, Oriented Times 3 Cardiovascular: Regular rate, Normal S1, Normal S2 Respiratory: Chest non-tender, No respiratory distress, Breath sounds nml Abdomen: Normal bowel sounds, Soft, No tenderness Extremities: Normal pulses Skin: No breakdown - Results Results: Laboratory Results WBC 9.2 x10^3/uL (4.8-10.8) 03/24/20 06:15 RBC 4.38 10^6/uL (4.70-6.10) L 03/24/20 06:15 Hgb 13.9 g/dL (14.0-18.0) L 03/24/20 06:15 Hct 41.8 % (42.0-52.0) L 03/24/20 06:15 MCV 95.4 fL (80.0-94.0) H 03/24/20 06:15 MCH 31.7 pg (27.0-31.0) H 03/24/20 06:15 MCHC 33.3 g/dL (32.0-36.0) 03/24/20 06:15 RDW 12.6 % (12.0-15.0) 03/24/20 06:15 Plt Count 249 10^3/uL (130-450) 03/24/20 06:15 MPV 9.9 fL (7.4-11.4) 03/24/20 06:15 Neut # (Auto) 6.2 10^3/uL (1.5-6.6) 03/24/20 06:15 Lymph # (Auto) 1.8 10^3/uL (1.5-3.5) 03/24/20 06:15 [place] # (Auto) 0.7 10^3/uL (0.0-1.0) 03/24/20 06:15 Eos # (Auto) 0.2 10^3/uL (0.0-0.7) 03/24/20 06:15 Baso # (Auto) 0.1 10^3/uL (0.0-0.1) 03/24/20 06:15 Absolute Nucleated RBC 0.00 x10^3/uL 03/24/20 06:15 Nucleated RBC % 0.0 /100WBC 03/24/20 06:15 Whole Blood INR 0.9 (0.8-1.2) 03/23/20 09:40 D-Dimer 835.4 ng/mL (200.0-255.0) H 03/23/20 09:40 Anti-Xa Level 0.5 U/mL (-0.7) 03/24/20 13:39 Sodium 140 mmol/L (135-145) 03/24/20 06:15 Potassium 3.9 mmol/L (3.5-5.0) 03/24/20 06:15 Chloride 106 mmol/L (101-111) 03/24/20 06:15 Carbon Dioxide 21 mmol/L (21-32) 03/24/20 06:15 Anion Gap 13.0 (6-13) 03/24/20 06:15 BUN 20 mg/dL (6-20) 03/24/20 06:15 Creatinine 1.4 mg/dL (0.6-1.2) H 03/24/20 06:15 Estimated GFR (MDRD) 52 (>89) L 03/24/20 06:15 Glucose 119 mg/dL (70-100) H 03/24/20 06:15 Lactic Acid 1.3 mmol/L (0.5-2.2) 03/23/20 15:46 Calcium 9.5 mg/dL (8.5-10.3) 03/24/20 06:15 Total Bilirubin 1.0 mg/dL (0.2-1.0) 03/23/20 09:40 AST 25 IU/L (10-42) 03/23/20 09:40 ALT 32 IU/L (10-60) 03/23/20 09:40 Alkaline Phosphatase 88 IU/L (42-121) 03/23/20 09:40 Troponin I High Sens 62.8 ng/L (2.3-19.7) H* 03/23/20 13:18 B-Natriuretic Peptide 102 pg/mL (5-100) H 03/23/20 09:40 Total Protein 7.5 g/dL (6.7-8.2) 03/23/20 09:40 Albumin 3.9 g/dL (3.2-5.5) 03/23/20 09:40 Globulin 3.6 g/dL (2.1-4.2) 03/23/20 09:40 Albumin/Globulin Ratio 1.1 (1.0-2.2) 03/23/20 09:40 Lipase 36 U/L (22-51) 03/23/20 09:40 Nasal Adenovirus (PCR) NOT DETECTED 03/23/20 12:00 Nasal B. parapertussis DNA (PCR) NOT DETECTED 03/23/20 12:00 Nasal Coronavir 229E PCR NOT DETECTED 03/23/20 12:00 Nasal Coronavir HKU1 PCR NOT DETECTED 03/23/20 12:00 Nasal Coronavir NL63 PCR NOT DETECTED 03/23/20 12:00 Nasal Coronavir OC43 PCR NOT DETECTED 03/23/20 12:00 Nasal Enterovir/Rhinovir PCR NOT DETECTED 03/23/20 12:00 Nasal Influenza B PCR NOT DETECTED 03/23/20 12:00 Nasal Influenza A PCR NOT DETECTED 03/23/20 12:00 Nasal Parainfluen 1 PCR NOT DETECTED 03/23/20 12:00 Nasal Parainfluen 2 PCR NOT DETECTED 03/23/20 12:00 Nasal Parainfluen 3 PCR NOT DETECTED 03/23/20 12:00 Nasal Parainfluen 4 PCR NOT DETECTED 03/23/20 12:00 Nasal RSV (PCR) NOT DETECTED 03/23/20 12:00 Nasal B.pertussis DNA PCR NOT DETECTED 03/23/20 12:00 Nasal C.pneumoniae (PCR) NOT DETECTED 03/23/20 12:00 [place] Human Metapneumo PCR NOT DETECTED 03/23/20 12:00 Nasal M.pneumoniae (PCR) NOT DETECTED 03/23/20 12:00 Nasal SARS-CoV-2 (PCR) NOT DETECTED 03/23/20 12:00 Last Dose Date Not Reportable 03/23/20 14:53 Last Dose Time Not Reportable 03/23/20 14:53 [place] 0.61 mmol/L 03/23/20 14:53 Sepsis Event Note (H) - Evaluation Current Stage of Sepsis: Ruled out ABX Reporting Has patient been on IV antibiotics over the past 48 hours?: Yes Current Medications - Current Medications Current Medications: Active Medications Acetaminophen (Acetaminophen 325 Mg Tablet) 650 mg PO Q4HR PRN PRN Reason: Pain 1 to 4 Last Admin: 03/24/20 14:10 Dose: 650 mg Documented by: Albuterol (Albuterol Neb 2.5 Mg/3 Ml) 2.5 mg INH RTQ4H PRN PRN Reason: Wheezing Heparin Sodium (Porcine) (Heparin 1,000 Unit/Ml Vial) 2,400 unit 25 unit/kg (2400 unit) IVP Q6H PRN PRN Reason: ANTI-XA < 0.2 Heparin Sodium/Dextrose () 25,000 unit in 500 mls @ 28.849 mls/hr IV .[id number] SHANNON; Protocol Last Admin: 03/24/20 14:07 Dose: 11 unit/kg/hr, 21.156 mls/hr Documented by: Azithromycin 500 mg/ Sodium (Chloride) 250 mls @ 250 mls/hr IV DAILY [facility] Stop: 03/25/20 09:59 Last Infusion: 03/24/20 11:25 Dose: Infused Documented by: Ceftriaxone Sodium 2 gm/ (Sodium Chloride) 100 mls @ 200 mls/hr IV DAILY [facility] Stop: 03/28/20 09:29 Last Infusion: 03/24/20 09:20 Dose: Infused Documented by: Sodium Chloride (Normal Saline 0.9%) 1,000 mls @ 83.333 mls/hr IV .Q12H [facility] Stop: 03/24/20 20:59 Last Admin: 03/24/20 08:45 Dose: 83.333 mls/hr Documented by: [place] Carbonate ([place] 150 Mg Capsule) 1,350 mg PO HS [facility] Last Admin: 03/23/20 20:44 Dose: 1,350 mg Documented by: Non-Formulary Medication (Alfuzosin Hcl [Alfuzosin Hcl Er]) 10 mg PO DAILY [facility] Last Admin: 03/24/20 08:55 Dose: Not Given Documented by: Ondansetron HCl (Ondansetron 4 Mg/2 Ml Vial) 4 mg IVP Q6HR PRN PRN Reason: Nausea / Vomiting Oxycodone HCl (Oxycodone 5 Mg Tablet) 5 mg PO Q4HR PRN PRN Reason: PAIN Last Admin: 03/24/20 09:30 Dose: 5 mg Documented by: Pantoprazole Sodium (Pantoprazole 40 Mg Tablet) 40 mg PO QDAC [facility] Last Admin: 03/24/20 06:39 Dose: 40 mg Documented by: Propranolol HCl (Propranolol 10 Mg Tablet) 10 mg PO DAILY [facility] Last Admin: 03/24/20 08:44 Dose: 10 mg Documented by: Sodium Chloride (Sodium Chloride Flush 0.9% 10 Ml Syringe) 10 ml IVP PRN PRN PRN Reason: NEEDED PER PROVIDER ORDERS Last Admin: 03/23/20 19:50 Dose: 10 ml Documented by: Sodium Chloride (Sodium Chloride Flush 0.9% 10 Ml Syringe) 10 ml IVP 0100,0900,1700 [facility] Last Admin: 03/24/20 08:45 Dose: 10 ml Documented by: Alfuzosin HCl [Alfuzosin HCl ER] 10 mg PO DAILY 07/11/19 Clopidogrel [Plavix] 75 mg PO DAILY 07/11/19 [place] 1,350 mg PO HS 07/11/19 Propranolol [Inderal] 10 mg PO DAILY 03/23/20 amLODIPine [Norvasc] 5 mg PO DAILY 03/23/20
[2020-03-24] MEDS: LITHIUM 150 MG CAPSULE PO SCH (20:05)
[2020-03-25] MEDS: SODIUM CHLORIDE FLUSH 0.9% 10 ML SYRINGE IVP SCH ×3 (00:21→15:24)
[2020-03-25] MEDS: guaiFENesin/CODEINE 5 ML UDC PO PRN ×3 (00:26→20:16)
[2020-03-25 05:07] LABS: BASOPHILS % (AUTO) 0.4 %; EOSINOPHILS # (AUTO) 0.3 10^3/uL (0.0-0.7); EOSINOPHILS % (AUTO) 2.6 %; LYMPHOCYTES # (AUTO) 1.8 10^3/uL (1.5-3.5); LYMPHOCYTES % (AUTO) 18.3 %; MEAN CORPUSCULAR HEMOGLOBIN 31.1 pg (27.0-31.0); MEAN CORPUSCULAR HGB CONC 31.8 g/dL (32.0-36.0); MEAN CORPUSCULAR VOLUME 97.8 fL (80.0-94.0); MONOCYTES # (AUTO) 0.8 10^3/uL (0.0-1.0); MONOCYTES % (AUTO) 8.1 %; NEUTROPHILS % (AUTO) 69.9 %; PLT - PLATELET COUNT 254 10^3/uL (130-450); RED BLOOD COUNT 4.18 10^6/uL (4.70-6.10); RED CELL DISTRIBUTION WIDTH 12.8 % (12.0-15.0); WHITE BLOOD COUNT 10.1 x10^3/uL (4.8-10.8)
[2020-03-25 05:12] LABS: CALCIUM 9.3 mg/dL (8.5-10.3); CREATININE 1.4 mg/dL (0.6-1.2)
[2020-03-25] MEDS: PANTOPRAZOLE 40 MG TABLET PO SCH (06:37)
[2020-03-25] MEDS: PROPRANOLOL 10 MG TABLET PO SCH (09:11)
[2020-03-25] MEDS: cefTRIAXone 2 GM in SODIUM CHLORIDE 0.9% MINIBAG 100 ML IV SCH (09:11)
[2020-03-25] MEDS: SODIUM CHLORIDE 0.9% 1,000 ML IV SCH ×2 (09:11→20:24)
[2020-03-25] MEDS: polyethylene glycoL 3350 17 GM PACKET PO SCH (09:50)
[2020-03-25] MEDS: AZITHROMYCIN INJ 500 MG in SODIUM CHLORIDE 0.9% 250 ML IV SCH (09:50)
--- NOTE | 2020-03-25 12:38 | PROVIDER PROGRESS NOTE ---
Assessment/Plan - Problem List (1) Respiratory failure with hypoxia Assessment/Plan: 03/25, improved. Patient reported he feels much better for his shortness breathing. pt has 95-97% sat on 3 liter, will ask nurse wane off or reduced O2. Continue antibiotics for pneumonia and continue heparin drip For PE, We will switch heparin drip to Xarelto PO 03/24 Patient reported he is shortness of breathing is better, He feel significantly reduced his shortness of breathing. But the patient still need 4 liter of O2 oxygen to support 92% sats. Patient is not Tachypneic. WBC become normal Range. We will continue use heparin drip for PE, continue with antibiotics for pneumonia Patient clinically show shortness of breathing, COVID-19 test is negative, CTA showed extensive PE and with pneumonia. We will treat heparin drip for PE, with antibiotics for pneumonia. 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 We will switch to p.o. Xarelto, Patient at least need to 3 months for Anticoagulation Xarelto. 113, patient feels better for his breathing. We will continue heparin drip, continue supplemental oxygen as needed CTA show extensive PE in main pulmonary artery, echo study show patient has no right heart strain. Ultrasound of bilateral lower extremities show left-sided has an acute DVT and in the right side show chronic DVT. Patient has a history of right lower extremity DVT in the past. Patient may need anticoagulation study as outpatient setting. Patient denies chest pain. We will use heparin drip treated for pulmonary embolism. Continue lab and vital signs monitor patient. (3) Pneumonia Conclusion/Plan: 114,Patient feel much better, will continue antibiotics and will switch to p.o. antibiotics. 113, We will continue antibiotics, continue supplement monitor oxygen as needed Patient had slightly elevated WBC, clinical patient has showed shortness of breathing, Patient had 92% sats on 4 L oxygen, CTA and chest x-ray both show patient has Pneumonia. We will treat the patient with community acquired pneumonia with azithromycin and Rocephin, supplemental oxygen as needed, continue laboratory and vital signs monitor patient (4) Elevated troponin Conclusion/Plan: Patient had elevated troponin, repeat troponin is reduced and the flat, EKG does not suggestion myocardial ischemia or ST variation. Patient denies chest pain. It is likely distress from patient PE. Continue telemetry and vital signs monitor (5) HTN (hypertension) Conclusion/Plan: Patient had elevated blood pressure, we will resume home blood pressure medicine and vital signs monitor (6) Bipolar 1 disorder Conclusion/Plan: Patient has a history of bipolar, we will resume patient home medication lithium, check lithium concentration is in the therapeutic range (7) GERD (gastroesophageal reflux disease) Conclusion/Plan: Patient has a history of GERD, we will start with Protonix (8)CKD Patient creatinine 1.4 is At the patient's baseline, and stable (2) Pulmonary emboli Qualifiers: Pulmonary embolism type: multiple subsegmental (without acute cor pulmonale) Qualified Code(s): I26.94 - Multiple subsegmental pulmonary emboli without acute cor pulmonale - Current Meds Current Meds: Current Medications Generic Name Dose Route Start Last Admin Trade Name Freq PRN Reason Stop Dose Admin Acetaminophen 650 mg 03/23/20 13:49 03/24/20 14:10 Acetaminophen 325 Mg Tablet PO 650 mg Q4HR PRN Administration Pain 1 to 4 Guaifenesin/Codeine Phosphate 5 ml 03/25/20 00:07 03/25/20 00:26 Guaifenesin/Codeine 5 Ml Udc PO 5 ml Q6HR PRN Administration Cough Heparin Sodium/Dextrose 25,000 unit in 500 mls @ 28.849 mls/hr 03/23/20 17:00 03/24/20 14:07 IV 11 unit/kg/hr .[id number] SHANNON 21.156 mls/hr Administration Protocol 15 UNIT/KG/HR Ceftriaxone Sodium 2 gm/ 100 mls @ 200 mls/hr 03/24/20 09:00 03/25/20 09:45 Sodium Chloride IV 03/28/20 09:29 Infused DAILY SHANNON Infusion Sodium Chloride 1,000 mls @ 100 mls/hr 03/25/20 09:00 03/25/20 09:11 Normal Saline 0.9% IV 03/26/20 04:59 100 mls/hr .Q10H SHANNON Administration [place] Carbonate 1,350 mg 03/23/20 21:00 03/24/20 20:05 [place] 150 Mg Capsule PO 1,350 mg HS SHANNON Administration Non-Formulary Medication 10 mg 03/24/20 09:00 03/24/20 08:55 Alfuzosin Hcl [Alfuzosin Hcl Er] PO Not Given DAILY SHANNON Oxycodone HCl 5 mg 03/24/20 09:14 03/24/20 17:19 Oxycodone 5 Mg Tablet PO 5 mg Q4HR PRN Administration PAIN Pantoprazole Sodium 40 mg 03/23/20 17:33 03/25/20 06:37 Pantoprazole 40 Mg Tablet PO 40 mg QDAC SHANNON Administration Polyethylene Glycol 17 gm 03/25/20 09:00 03/25/20 09:50 Polyethylene Glycol 3350 17 Gm Packet PO 17 gm DAILY SHANNON Administration Propranolol HCl 10 mg 03/23/20 18:05 03/25/20 09:11 Propranolol 10 Mg Tablet PO 10 mg DAILY [facility]ANNON Administration Sodium Chloride 10 ml 03/23/20 13:49 03/23/20 19:50 Sodium Chloride Flush 0.9% 10 Ml Syringe IVP 10 ml PRN PRN Administration NEEDED PER PROVIDER ORDERS Sodium Chloride 10 ml 03/23/20 17:00 03/25/20 12:13 Sodium Chloride Flush 0.9% 10 Ml Syringe IVP Not Given 0100,0900,1700 SHANNON - Lab Result Fish Bone Diagrams: 03/25/20 04:00 03/25/20 04:00 - Additional Planning My Orders: My Active Orders 03/25/20 08:07 Out of bed 4+ hours [RC] QID 03/25/20 09:00 Sodium Chloride 0.9% [Normal Saline 0.9%] 1,000 ml IV 100 mls/hr polyethylene glycoL 3350 [Miralax] 17 gm PO DAILY 03/26/20 05:00 BMP - BASIC METABOLIC PANEL [CHEM] DAILYLAB CBC - COMP BLD CT W/AUTO DIFF [HEME] DAILYLAB 03/27/20 05:00 BMP - BASIC METABOLIC PANEL [CHEM] DAILYLAB CBC - COMP BLD CT W/AUTO DIFF [HEME] DAILYLAB 03/28/20 05:00 BMP - BASIC METABOLIC PANEL [CHEM] DAILYLAB CBC - COMP BLD CT W/AUTO DIFF [HEME] DAILYLAB Subjective - Subjective Patient Reports: Feeling Better Objective Vital Signs: Vital Signs - 24 hr 03/24/20 03/24/20 03/24/20 13:00 17:00 20:08 Temperature 36.6 C 36.5 C 36.5 C Heart Rate [ 76 63 64 Monitoring electrodes] Respiratory 21 21 17 Rate Blood Pressure 136/101 H [Left Brachial artery] Blood Pressure 138/94 H 128/85 H [Right Brachial artery] O2 Saturation 91 L 92 96 03/24/20 03/25/20 03/25/20 22:18 00:15 05:00 Temperature 36.3 C L 36.5 C Heart Rate [ 70 63 Monitoring electrodes] Respiratory 17 20 18 Rate Blood Pressure 155/97 H 134/86 H [Left Brachial artery] Blood Pressure 147/99 H [Right Brachial artery] O2 Saturation 93 94 94 03/25/20 08:45 Temperature 36.9 C Heart Rate [ 80 Monitoring electrodes] Respiratory 18 Rate Blood Pressure 154/96 H [Left Brachial artery] Blood Pressure [Right Brachial artery] O2 Saturation 95 Oxygen O2 Source Nasal cannula I&O (Last 24 Hrs): Intake and Output Totals x24h 03/23/20 03/24/20 03/25/20 23:59 23:59 23:59 Intake Total 950.635 6717.990 950 Output Total 2500 2900 2350 Balance -1776.425 245.990 -1400 General: Alert, Oriented x3, Cooperative, No acute distress HEENT: Atraumatic Neck: Supple Lymphatic: no adenopathy Neuro: Alert, Non Focal, Oriented Times 3 Cardiovascular: Regular rate, Normal S1, Normal S2 Respiratory: Chest non-tender, No respiratory distress Abdomen: Normal bowel sounds, Soft, No tenderness Extremities: Normal pulses Skin: No breakdown - Results Results: Laboratory Results WBC 10.1 x10^3/uL (4.8-10.8) 03/25/20 04:00 RBC 4.18 10^6/uL (4.70-6.10) L 03/25/20 04:00 Hgb 13.0 g/dL (14.0-18.0) L 03/25/20 04:00 Hct 40.9 % (42.0-52.0) L 03/25/20 04:00 MCV 97.8 fL (80.0-94.0) H 03/25/20 04:00 MCH 31.1 pg (27.0-31.0) H 03/25/20 04:00 MCHC 31.8 g/dL (32.0-36.0) L 03/25/20 04:00 RDW 12.8 % (12.0-15.0) 03/25/20 04:00 Plt Count 254 10^3/uL (130-450) 03/25/20 04:00 MPV 10.0 fL (7.4-11.4) 03/25/20 04:00 Neut # (Auto) 7.0 10^3/uL (1.5-6.6) H 03/25/20 04:00 Lymph # (Auto) 1.8 10^3/uL (1.5-3.5) 03/25/20 04:00 [place] # (Auto) 0.8 10^3/uL (0.0-1.0) 03/25/20 04:00 Eos # (Auto) 0.3 10^3/uL (0.0-0.7) 03/25/20 04:00 Baso # (Auto) 0.0 10^3/uL (0.0-0.1) 03/25/20 04:00 Absolute Nucleated RBC 0.00 x10^3/uL 03/25/20 04:00 Nucleated RBC % 0.0 /100WBC 03/25/20 04:00 Whole Blood INR 0.9 (0.8-1.2) 03/23/20 09:40 D-Dimer 835.4 ng/mL (200.0-255.0) H 03/23/20 09:40 Anti-Xa Level 0.3 U/mL (-0.7) 03/25/20 04:00 Sodium 139 mmol/L (135-145) 03/25/20 04:00 Potassium 4.1 mmol/L (3.5-5.0) 03/25/20 04:00 Chloride 108 mmol/L (101-111) 03/25/20 04:00 Carbon Dioxide 24 mmol/L (21-32) 03/25/20 04:00 Anion Gap 7.0 (6-13) 03/25/20 04:00 BUN 20 mg/dL (6-20) 03/25/20 04:00 Creatinine 1.4 mg/dL (0.6-1.2) H 03/25/20 04:00 Estimated GFR (MDRD) 52 (>89) L 03/25/20 04:00 Glucose 124 mg/dL (70-100) H 03/25/20 04:00 Lactic Acid 1.3 mmol/L (0.5-2.2) 03/23/20 15:46 Calcium 9.3 mg/dL (8.5-10.3) 03/25/20 04:00 Total Bilirubin 1.0 mg/dL (0.2-1.0) 03/23/20 09:40 AST 25 IU/L (10-42) 03/23/20 09:40 ALT 32 IU/L (10-60) 03/23/20 09:40 Alkaline Phosphatase 88 IU/L (42-121) 03/23/20 09:40 Troponin I High Sens 62.8 ng/L (2.3-19.7) H* 03/23/20 13:18 B-Natriuretic Peptide 102 pg/mL (5-100) H 03/23/20 09:40 Total Protein 7.5 g/dL (6.7-8.2) 03/23/20 09:40 Albumin 3.9 g/dL (3.2-5.5) 03/23/20 09:40 Globulin 3.6 g/dL (2.1-4.2) 03/23/20 09:40 Albumin/Globulin Ratio 1.1 (1.0-2.2) 03/23/20 09:40 Lipase 36 U/L (22-51) 03/23/20 09:40 Nasal Adenovirus (PCR) NOT DETECTED 03/23/20 12:00 Nasal B. parapertussis DNA (PCR) NOT DETECTED 03/23/20 12:00 Nasal Coronavir 229E PCR NOT DETECTED 03/23/20 12:00 Nasal Coronavir HKU1 PCR NOT DETECTED 03/23/20 12:00 Nasal Coronavir NL63 PCR NOT DETECTED 03/23/20 12:00 Nasal Coronavir OC43 PCR NOT DETECTED 03/23/20 12:00 Nasal Enterovir/Rhinovir PCR NOT DETECTED 03/23/20 12:00 Nasal Influenza B PCR NOT DETECTED 03/23/20 12:00 Nasal Influenza A PCR NOT DETECTED 03/23/20 12:00 Nasal Parainfluen 1 PCR NOT DETECTED 03/23/20 12:00 Nasal Parainfluen 2 PCR NOT DETECTED 03/23/20 12:00 Nasal Parainfluen 3 PCR NOT DETECTED 03/23/20 12:00 Nasal Parainfluen 4 PCR NOT DETECTED 03/23/20 12:00 Nasal RSV (PCR) NOT DETECTED 03/23/20 12:00 Nasal B.pertussis DNA PCR NOT DETECTED 03/23/20 12:00 Nasal C.pneumoniae (PCR) NOT DETECTED 03/23/20 12:00 [place] Human Metapneumo PCR NOT DETECTED 03/23/20 12:00 Nasal M.pneumoniae (PCR) NOT DETECTED 03/23/20 12:00 Nasal SARS-CoV-2 (PCR) NOT DETECTED 03/23/20 12:00 Last Dose Date Not Reportable 03/23/20 14:53 Last Dose Time Not Reportable 03/23/20 14:53 [place] 0.61 mmol/L 03/23/20 14:53 Sepsis Event Note (H) - Evaluation Current Stage of Sepsis: Ruled out ABX Reporting Has patient been on IV antibiotics over the past 48 hours?: Yes Current Medications - Current Medications Current Medications: Active Medications Acetaminophen (Acetaminophen 325 Mg Tablet) 650 mg PO Q4HR PRN PRN Reason: Pain 1 to 4 Last Admin: 03/24/20 14:10 Dose: 650 mg Documented by: Albuterol (Albuterol Neb 2.5 Mg/3 Ml) 2.5 mg INH RTQ4H PRN PRN Reason: Wheezing Guaifenesin/Codeine Phosphate (Guaifenesin/Codeine 5 Ml Udc) 5 ml PO Q6HR PRN PRN Reason: Cough Last Admin: 03/25/20 12:49 Dose: 5 ml Documented by: Heparin Sodium (Porcine) (Heparin 1,000 Unit/Ml Vial) 2,400 unit 25 unit/kg (2400 unit) IVP Q6H PRN PRN Reason: ANTI-XA < 0.2 Heparin Sodium/Dextrose () 25,000 unit in 500 mls @ 28.849 mls/hr IV .[id number] SHANNON; Protocol Last Admin: 03/25/20 12:42 Dose: 11 unit/kg/hr, 21.156 mls/hr Documented by: Ceftriaxone Sodium 2 gm/ (Sodium Chloride) 100 mls @ 200 mls/hr IV DAILY SHANNON Stop: 03/28/20 09:29 Last Infusion: 03/25/20 09:45 Dose: Infused Documented by: Sodium Chloride (Normal Saline 0.9%) 1,000 mls @ 100 mls/hr IV .Q10H [facility] Stop: 03/26/20 04:59 Last Admin: 03/25/20 09:11 Dose: 100 mls/hr Documented by: [place] Carbonate ([place] 150 Mg Capsule) 1,350 mg PO HS [facility] Last Admin: 03/24/20 20:05 Dose: 1,350 mg Documented by: Non-Formulary Medication (Alfuzosin Hcl [Alfuzosin Hcl Er]) 10 mg PO DAILY [facility] Last Admin: 03/24/20 08:55 Dose: Not Given Documented by: Ondansetron HCl (Ondansetron 4 Mg/2 Ml Vial) 4 mg IVP Q6HR PRN PRN Reason: Nausea / Vomiting Oxycodone HCl (Oxycodone 5 Mg Tablet) 5 mg PO Q4HR PRN PRN Reason: PAIN Last Admin: 03/24/20 17:19 Dose: 5 mg Documented by: Pantoprazole Sodium (Pantoprazole 40 Mg Tablet) 40 mg PO QDAC [facility] Last Admin: 03/25/20 06:37 Dose: 40 mg Documented by: Polyethylene Glycol (Polyethylene Glycol 3350 17 Gm Packet) 17 gm PO DAILY [facility] Last Admin: 03/25/20 09:50 Dose: 17 gm Documented by: Propranolol HCl (Propranolol 10 Mg Tablet) 10 mg PO DAILY [facility] Last Admin: 03/25/20 09:11 Dose: 10 mg Documented by: Sodium Chloride (Sodium Chloride Flush 0.9% 10 Ml Syringe) 10 ml IVP PRN PRN PRN Reason: NEEDED PER PROVIDER ORDERS Last Admin: 03/23/20 19:50 Dose: 10 ml Documented by: Sodium Chloride (Sodium Chloride Flush 0.9% 10 Ml Syringe) 10 ml IVP 0100,0900,1700 [facility] Last Admin: 03/25/20 12:13 Dose: Not Given Documented by: Alfuzosin HCl [Alfuzosin HCl ER] 10 mg PO DAILY 07/11/19 Clopidogrel [Plavix] 75 mg PO DAILY 07/11/19 [place] 1,350 mg PO HS 07/11/19 Propranolol [Inderal] 10 mg PO DAILY 03/23/20 amLODIPine [Norvasc] 5 mg PO DAILY 03/23/20
[2020-03-25] MEDS: HEPARIN 25000UNITS/500ML (D5W) 25,000 UNIT/500 ML BAG IV SCH (12:42)
[2020-03-25] MEDS: RIVAROXABAN 15 MG TABLET PO SCH (15:23)
[2020-03-25] MEDS: ALFUZOSIN HCL 10 MG PO SCH (15:24)
[2020-03-25] MEDS ORDERED: TUBERCULIN 5 TUB UNIT/0.1 ML 1 ML MDV ID ONE (17:30)
[2020-03-25] MEDS: LITHIUM 150 MG CAPSULE PO SCH (20:22)
[2020-03-25] MEDS: SODIUM CHLORIDE FLUSH 0.9% 10 ML SYRINGE IVP PRN (20:25)
[2020-03-26] MEDS: SODIUM CHLORIDE FLUSH 0.9% 10 ML SYRINGE IVP SCH ×3 (01:05→16:59)
[2020-03-26] MEDS: ACETAMINOPHEN 325 MG TABLET PO PRN ×3 (03:54→18:11)
[2020-03-26 05:17] LABS: BASOPHILS % (AUTO) 0.4 %; EOSINOPHILS # (AUTO) 0.3 10^3/uL (0.0-0.7); EOSINOPHILS % (AUTO) 2.8 %; HGB - HEMOGLOBIN 13.2 g/dL (14.0-18.0); LYMPHOCYTES # (AUTO) 1.3 10^3/uL (1.5-3.5); LYMPHOCYTES % (AUTO) 14.3 %; MEAN CORPUSCULAR HEMOGLOBIN 31.5 pg (27.0-31.0); MEAN CORPUSCULAR HGB CONC 32.1 g/dL (32.0-36.0); MEAN CORPUSCULAR VOLUME 98.1 fL (80.0-94.0); MEAN PLATELET VOLUME 9.9 fL (7.4-11.4); MONOCYTES # (AUTO) 0.7 10^3/uL (0.0-1.0); MONOCYTES % (AUTO) 7.8 %; NEUTROPHILS # (AUTO) 6.9 10^3/uL (1.5-6.6); NEUTROPHILS % (AUTO) 74.3 %; PLT - PLATELET COUNT 253 10^3/uL (130-450); RED BLOOD COUNT 4.19 10^6/uL (4.70-6.10); RED CELL DISTRIBUTION WIDTH 12.5 % (12.0-15.0); WHITE BLOOD COUNT 9.2 x10^3/uL (4.8-10.8)
[2020-03-26 05:29] LABS: CALCIUM 9.4 mg/dL (8.5-10.3); CREATININE 1.1 mg/dL (0.6-1.2)
[2020-03-26] MEDS: PANTOPRAZOLE 40 MG TABLET PO SCH (06:00)
[2020-03-26] MEDS: cefTRIAXone 2 GM in SODIUM CHLORIDE 0.9% MINIBAG 100 ML IV SCH (08:17)
[2020-03-26] MEDS: ALFUZOSIN HCL 10 MG PO SCH (08:17)
[2020-03-26] MEDS: polyethylene glycoL 3350 17 GM PACKET PO SCH (08:30)
[2020-03-26] MEDS: DOCUSATE SODIUM 250 MG CAPSULE PO SCH (08:31)
[2020-03-26] MEDS: PROPRANOLOL 10 MG TABLET PO SCH (08:31)
[2020-03-26] MEDS: RIVAROXABAN 15 MG TABLET PO SCH ×2 (08:32→16:59)
[2020-03-26] MEDS: SENNA 8.6 MG TABLET PO SCH (08:33)
[2020-03-26] MEDS: SACCHAROMYCES BOULARDII 250 MG CAPSULE PO SCH ×2 (09:21→16:58)
[2020-03-26] MEDS ORDERED: GI COCKTAIL 120 ML BOTTLE PO PRN (12:16)
[2020-03-26] MEDS ORDERED: GI COCKTAIL 120 ML BOTTLE PO SCH (13:00)
[2020-03-26] MEDS ORDERED: hydrALAZINE 10 MG TABLET PO STA (13:55)
[2020-03-26] MEDS ORDERED: amLODIPine 5 MG TABLET PO SCH ×4 (14:56→18:00)
[2020-03-26] MEDS: hydrALAZINE INJ 20 MG/ML VIAL IVP PRN (16:38)
--- NOTE | 2020-03-26 17:44 | PROVIDER PROGRESS NOTE ---
Assessment/Plan - Problem List (1) Uncontrolled hypertension Assessment/Plan: Patient's BP still has 164/103, 172/98. Patient was ordered Norvasc, PO hydralazine and IV of hydralazine, but still elevated. plan increase Norvasc to 10mg, switch pt's home daily propranolol 10 mg to 25 mg Metoprolol, monitor vital signs, adjust BP meds as needed. (2) Respiratory failure with hypoxia Assessment/Plan: 03/26 Patient has a 95% sats on room air on rest, great improved. pt feel his breath is better. But the patient needed 4 L oxygen by nasal cannula to support patient had a 92% O2 sat on ambulation Per RT assessment. Home oxygen needed. RT will help patient ordered for home oxygen. Patient has a history of severe pulmonary hypertension. Now patient had PE. We will continue treat PE with Anticoagulation, continue supplemental oxygen 03/25, improved. Patient reported he feels much better for his shortness breathing. pt has 95-97% sat on 3 liter, will ask nurse wane off or reduced O2. Continue antibiotics for pneumonia and continue heparin drip For PE, We will s witch heparin drip to Xarelto PO 03/24 Patient reported he is shortness of breathing is better, He feel significantly reduced his shortness of breathing. But the patient still need 4 liter of O2 oxygen to support 92% sats. Patient is not Tachypneic. WBC become normal Range. We will continue use heparin drip for PE, continue with antibiotics for pneumonia Patient clinically show shortness of breathing, COVID-19 test is negative, CTA showed extensive PE and with pneumonia. We will treat heparin drip for PE, with antibiotics for pneumonia. 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 03-25, Patient is feeling much better for his breathing, We will continue anticoagulation. We will switch to p.o. Xarelto, Patient at least need to 3 months for Anticoagulation Xarelto. 113, patient feels better for his breathing. We will continue heparin drip, continue supplemental oxygen as needed CTA show extensive PE in main pulmonary artery, echo study show patient has no right heart strain. Ultrasound of bilateral lower extremities show left-sided has an acute DVT and in the right side show chronic DVT. Patient has a history of right lower extremity DVT in the past. Patient may need anticoagulation study as outpatient setting. Patient denies chest pain. We will use heparin drip treated for pulmonary embolism. Continue lab and vital signs monitor patient. (4) Pneumonia Conclusion/Plan: 1-15 Patient presents short of breath with exertion, and still cough. will order CXR, and continue antibiotics, and probiotics 114,Patient feel much better, will continue antibiotics and will switch to p.o. antibiotics. 113, We will continue antibiotics, continue supplement monitor oxygen as needed Patient had slightly elevated WBC, clinical patient has showed shortness of breathing, Patient had 92% sats on 4 L oxygen, CTA and chest x-ray both show patient has Pneumonia. We will treat the patient with community acquired pneumonia with azithromycin and Rocephin, supplemental oxygen as needed, continue laboratory and vital signs monitor patient (5)pulmonary hypertension Patient's ECHO show pt has Severe pulmonary hypertension plus Now patient has PE with pneumonia and need oxygen support. advise followup with [facility] as outpatient, Continue oxygen support. (6) Elevated troponin Conclusion/Plan: Patient had elevated troponin, repeat troponin is reduced and the flat, EKG does not suggestion myocardial ischemia or ST variation. Patient denies chest pain. It is likely distress from patient PE. Continue telemetry and vital signs monitor (7) HTN (hypertension) Conclusion/Plan: Patient had elevated blood pressure, we will resume home blood pressure medicine and vital signs monitor (8) Bipolar 1 disorder Conclusion/Plan: Patient has a history of bipolar, we will resume patient home medication lithium, check lithium concentration is in the therapeutic range (9) GERD (gastroesophageal reflux disease) Conclusion/Plan: Patient has a history of GERD, we will start with Protonix (10)CKD Patient creatinine 1.4 is At the patient's baseline, and stable (3) Pulmonary emboli Qualifiers: Pulmonary embolism type: multiple subsegmental (without acute cor pulmonale) Qualified Code(s): I26.94 - Multiple subsegmental pulmonary emboli without acute cor pulmonale - Current Meds Current Meds: Current Medications Generic Name Dose Route Start Last Admin Trade Name Freq PRN Reason Stop Dose Admin Acetaminophen 650 mg 03/23/20 13:49 03/26/20 08:31 Acetaminophen 325 Mg Tablet PO 650 mg Q4HR PRN Administration Pain 1 to 4 Docusate Sodium 250 - 500 mg 03/26/20 09:00 03/26/20 08:31 Docusate Sodium 250 Mg Capsule PO 500 mg DAILY SHANNON Administration Guaifenesin/Codeine Phosphate 5 ml 03/25/20 00:07 03/25/20 20:16 Guaifenesin/Codeine 5 Ml Udc PO 5 ml Q6HR PRN Administration Cough Hydralazine HCl 10 mg 03/26/20 15:58 03/26/20 16:38 Hydralazine Inj 20 Mg/Ml Vial IVP 10 mg Q4H PRN Administration Hypertensive Emergency Ceftriaxone Sodium 2 gm/ 100 mls @ 200 mls/hr 03/24/20 09:00 03/26/20 08:50 Sodium Chloride IV 03/28/20 09:29 Infused DAILY SHANNON Infusion [place] Carbonate 1,350 mg 03/23/20 21:00 03/25/20 20:22 [place] 150 Mg Capsule PO 1,350 mg HS SHANNON Administration Non-Formulary Medication 10 mg 03/24/20 09:00 03/26/20 08:17 Alfuzosin Hcl [Alfuzosin Hcl Er] PO Not Given DAILY SHANNON Oxycodone HCl 5 mg 03/24/20 09:14 03/24/20 17:19 Oxycodone 5 Mg Tablet PO 5 mg Q4HR PRN Administration PAIN Pantoprazole Sodium 40 mg 03/23/20 17:33 03/26/20 06:00 Pantoprazole 40 Mg Tablet PO 40 mg QDAC SHANNON Administration Polyethylene Glycol 17 gm 03/25/20 09:00 03/26/20 08:30 Polyethylene Glycol 3350 17 Gm Packet PO 17 gm DAILY SHANNON Administration Rivaroxaban 15 mg 03/25/20 15:30 03/26/20 16:59 Rivaroxaban 15 Mg Tablet PO 15 mg BIDWM SHANNON Administration Saccharomyces Boulardii 250 mg 03/26/20 08:51 03/26/20 16:58 Saccharomyces Boulardii 250 Mg Capsule PO 250 mg BIDWM SHANNON Administration Senna 8.6 - 17.2 mg 03/26/20 09:00 03/26/20 08:33 Senna 8.6 Mg Tablet PO Not Given DAILY SHANNON Sodium Chloride 10 ml 03/23/20 13:49 03/25/20 20:25 Sodium Chloride Flush 0.9% 10 Ml Syringe IVP 10 ml PRN PRN Administration NEEDED PER PROVIDER ORDERS Sodium Chloride 10 ml 03/23/20 17:00 03/26/20 16:59 Sodium Chloride Flush 0.9% 10 Ml Syringe IVP 10 ml 0100,0900,1700 [facility] Administration - Lab Result Fish Bone Diagrams: 03/26/20 04:25 03/26/20 04:25 - Additional Planning My Orders: My Active Orders 03/26/20 08:35 Oxygen Desat. Study w/Exercise [RC] .ONCE 03/26/20 08:51 Saccharomyces Boulardii [Florastor] 250 mg PO BIDWM 03/26/20 09:00 Docusate Sodium 250Mg Capsule [Colace 250Mg Capsule] 250 - 500 mg PO DAILY Senna [Senokot] 8.6 - 17.2 mg PO DAILY 03/26/20 12:16 Gi Cocktail 30 ml PO Q4H PRN 03/26/20 15:58 hydrALAZINE INJ [Apresoline Inj] 10 mg IVP Q4H PRN 03/26/20 16:06 RT [Home Oxygen] [RC] .ONCE 03/26/20 17:35 Metoprolol Tartrate [Lopressor] 25 mg PO BID 03/26/20 18:00 amLODIPine [Norvasc] 5 mg PO ONCE 03/27/20 05:00 BMP - BASIC METABOLIC PANEL [CHEM] DAILYLAB CBC - COMP BLD CT W/AUTO DIFF [HEME] DAILYLAB 03/27/20 09:00 amLODIPine [Norvasc] 10 mg PO DAILY 03/28/20 05:00 BMP - BASIC METABOLIC PANEL [CHEM] DAILYLAB CBC - COMP BLD CT W/AUTO DIFF [HEME] DAILYLAB Subjective - Subjective Patient Reports: Cough Objective Vital Signs: Vital Signs - 24 hr 03/25/20 03/25/20 03/26/20 20:18 23:52 04:55 Temperature 36.4 C L 36.6 C 36.8 C Heart Rate Heart Rate [ 69 75 60 Monitoring electrodes] Respiratory 16 18 20 Rate Blood Pressure [Left Brachial artery] Blood Pressure 165/95 H 146/77 H 149/94 H [Right Brachial artery] O2 Saturation 95 95 92 03/26/20 03/26/20 03/26/20 08:15 09:16 09:54 Temperature 36.5 C Heart Rate 70 Heart Rate [ 77 Monitoring electrodes] Respiratory 18 20 Rate Blood Pressure 156/98 H [Left Brachial artery] Blood Pressure [Right Brachial artery] O2 Saturation 93 93 03/26/20 03/26/20 03/26/20 10:42 12:00 14:08 Temperature 36.6 C Heart Rate 71 Heart Rate [ 68 79 Monitoring electrodes] Respiratory 18 Rate Blood Pressure [Left Brachial artery] Blood Pressure 169/111 H 171/108 H [Right Brachial artery] O2 Saturation 95 03/26/20 03/26/20 03/26/20 14:46 16:35 16:39 Temperature Heart Rate Heart Rate [ 71 67 65 Monitoring electrodes] Respiratory Rate Blood Pressure 177/114 H [Left Brachial artery] Blood Pressure 155/103 H 184/104 H 186/108 H [Right Brachial artery] O2 Saturation 03/26/20 03/26/20 03/26/20 16:45 16:50 16:52 Temperature 36.3 C L Heart Rate Heart Rate [ 75 78 75 Monitoring electrodes] Respiratory 20 Rate Blood Pressure [Left Brachial artery] Blood Pressure 166/99 H 161/106 H 171/108 H [Right Brachial artery] O2 Saturation 95 03/26/20 03/26/20 16:55 17:30 Temperature Heart Rate Heart Rate [ 72 78 Monitoring electrodes] Respiratory Rate Blood Pressure 177/92 H [Left Brachial artery] Blood Pressure 166/97 H 171/102 H [Right Brachial artery] O2 Saturation Oxygen O2 Source Room air I&O (Last 24 Hrs): Intake and Output Totals x24h 03/24/20 03/25/20 03/26/20 23:59 23:59 23:59 Intake Total 3145.990 3846.973 2160 Output Total 2900 4325 3125 Balance 245.990 -478.027 -965 General: Alert, Oriented x3, Cooperative, Mild distress HEENT: Atraumatic, PERRLA Neck: Supple Lymphatic: no adenopathy Neuro: Alert, Non Focal, Oriented Times 3 Cardiovascular: Regular rate, Normal S1, Normal S2 Respiratory: Chest non-tender Abdomen: Normal bowel sounds, Soft, No tenderness Extremities: Normal pulses - Results Results: Laboratory Results WBC 9.2 x10^3/uL (4.8-10.8) 03/26/20 04:25 RBC 4.19 10^6/uL (4.70-6.10) L 03/26/20 04:25 Hgb 13.2 g/dL (14.0-18.0) L 03/26/20 04:25 Hct 41.1 % (42.0-52.0) L 03/26/20 04:25 MCV 98.1 fL (80.0-94.0) H 03/26/20 04:25 MCH 31.5 pg (27.0-31.0) H 03/26/20 04:25 MCHC 32.1 g/dL (32.0-36.0) 03/26/20 04:25 RDW 12.5 % (12.0-15.0) 03/26/20 04:25 Plt Count 253 10^3/uL (130-450) 03/26/20 04:25 MPV 9.9 fL (7.4-11.4) 03/26/20 04:25 Neut # (Auto) 6.9 10^3/uL (1.5-6.6) H 03/26/20 04:25 Lymph # (Auto) 1.3 10^3/uL (1.5-3.5) L 03/26/20 04:25 [place] # (Auto) 0.7 10^3/uL (0.0-1.0) 03/26/20 04:25 Eos # (Auto) 0.3 10^3/uL (0.0-0.7) 03/26/20 04:25 Baso # (Auto) 0.0 10^3/uL (0.0-0.1) 03/26/20 04:25 Absolute Nucleated RBC 0.00 x10^3/uL 03/26/20 04:25 Nucleated RBC % 0.0 /100WBC 03/26/20 04:25 Whole Blood INR 0.9 (0.8-1.2) 03/23/20 09:40 D-Dimer 835.4 ng/mL (200.0-255.0) H 03/23/20 09:40 Anti-Xa Level 0.3 U/mL (-0.7) 03/25/20 04:00 Sodium 140 mmol/L (135-145) 03/26/20 04:25 Potassium 4.1 mmol/L (3.5-5.0) 03/26/20 04:25 Chloride 111 mmol/L (101-111) 03/26/20 04:25 Carbon Dioxide 23 mmol/L (21-32) 03/26/20 04:25 Anion Gap 6.0 (6-13) 03/26/20 04:25 BUN 18 mg/dL (6-20) 03/26/20 04:25 Creatinine 1.1 mg/dL (0.6-1.2) 03/26/20 04:25 Estimated GFR (MDRD) 69 (>89) L 03/26/20 04:25 Glucose 110 mg/dL (70-100) H 03/26/20 04:25 Lactic Acid 1.3 mmol/L (0.5-2.2) 03/23/20 15:46 Calcium 9.4 mg/dL (8.5-10.3) 03/26/20 04:25 Total Bilirubin 1.0 mg/dL (0.2-1.0) 03/23/20 09:40 AST 25 IU/L (10-42) 03/23/20 09:40 ALT 32 IU/L (10-60) 03/23/20 09:40 Alkaline Phosphatase 88 IU/L (42-121) 03/23/20 09:40 Troponin I High Sens 62.8 ng/L (2.3-19.7) H* 03/23/20 13:18 B-Natriuretic Peptide 102 pg/mL (5-100) H 03/23/20 09:40 Total Protein 7.5 g/dL (6.7-8.2) 03/23/20 09:40 Albumin 3.9 g/dL (3.2-5.5) 03/23/20 09:40 Globulin 3.6 g/dL (2.1-4.2) 03/23/20 09:40 Albumin/Globulin Ratio 1.1 (1.0-2.2) 03/23/20 09:40 Lipase 36 U/L (22-51) 03/23/20 09:40 Nasal Adenovirus (PCR) NOT DETECTED 03/23/20 12:00 Nasal B. parapertussis DNA (PCR) NOT DETECTED 03/23/20 12:00 Nasal Coronavir 229E PCR NOT DETECTED 03/23/20 12:00 Nasal Coronavir HKU1 PCR NOT DETECTED 03/23/20 12:00 Nasal Coronavir NL63 PCR NOT DETECTED 03/23/20 12:00 Nasal Coronavir OC43 PCR NOT DETECTED 03/23/20 12:00 Nasal Enterovir/Rhinovir PCR NOT DETECTED 03/23/20 12:00 Nasal Influenza B PCR NOT DETECTED 03/23/20 12:00 Nasal Influenza A PCR NOT DETECTED 03/23/20 12:00 Nasal Parainfluen 1 PCR NOT DETECTED 03/23/20 12:00 Nasal Parainfluen 2 PCR NOT DETECTED 03/23/20 12:00 Nasal Parainfluen 3 PCR NOT DETECTED 03/23/20 12:00 Nasal Parainfluen 4 PCR NOT DETECTED 03/23/20 12:00 Nasal RSV (PCR) NOT DETECTED 03/23/20 12:00 Nasal B.pertussis DNA PCR NOT DETECTED 03/23/20 12:00 Nasal C.pneumoniae (PCR) NOT DETECTED 03/23/20 12:00 [place] Human Metapneumo PCR NOT DETECTED 03/23/20 12:00 Nasal M.pneumoniae (PCR) NOT DETECTED 03/23/20 12:00 Nasal SARS-CoV-2 (PCR) NOT DETECTED 03/23/20 12:00 Last Dose Date Not Reportable 03/23/20 14:53 Last Dose Time Not Reportable 03/23/20 14:53 [place] 0.61 mmol/L 03/23/20 14:53 Sepsis Event Note (H) - Evaluation Current Stage of Sepsis: Ruled out ABX Reporting Has patient been on IV antibiotics over the past 48 hours?: Yes Current Medications - Current Medications Current Medications: Active Medications Acetaminophen (Acetaminophen 325 Mg Tablet) 650 mg PO Q4HR PRN PRN Reason: Pain 1 to 4 Last Admin: 03/26/20 08:31 Dose: 650 mg Documented by: Albuterol (Albuterol Neb 2.5 Mg/3 Ml) 2.5 mg INH RTQ4H PRN PRN Reason: Wheezing Amlodipine Besylate (Amlodipine 5 Mg Tablet) 5 mg PO ONCE SHANNON Stop: 03/26/20 18:20 Amlodipine Besylate (Amlodipine 5 Mg Tablet) 10 mg PO DAILY SHANNON Docusate Sodium (Docusate Sodium 250 Mg Capsule) 250 - 500 mg PO DAILY SHANNON Last Admin: 03/26/20 08:31 Dose: 500 mg Documented by: Guaifenesin/Codeine Phosphate (Guaifenesin/Codeine 5 Ml Udc) 5 ml PO Q6HR PRN PRN Reason: Cough Last Admin: 03/25/20 20:16 Dose: 5 ml Documented by: Hydralazine HCl (Hydralazine Inj 20 Mg/Ml Vial) 10 mg IVP Q4H PRN PRN Reason: Hypertensive Emergency Last Admin: 03/26/20 16:38 Dose: 10 mg Documented by: Ceftriaxone Sodium 2 gm/ (Sodium Chloride) 100 mls @ 200 mls/hr IV DAILY [facility] Stop: 03/28/20 09:29 Last Infusion: 03/26/20 08:50 Dose: Infused Documented by: [place] Carbonate ([place] 150 Mg Capsule) 1,350 mg PO HS [facility] Last Admin: 03/25/20 20:22 Dose: 1,350 mg Documented by: Metoprolol Tartrate (Metoprolol Tartrate 25 Mg Tablet) 25 mg PO BID [facility] Multi-Ingredient Mouthwash/Gargle (Gi Cocktail 120 Ml Bottle) 30 ml PO Q4H PRN PRN Reason: Abdominal Pain Non-Formulary Medication (Alfuzosin Hcl [Alfuzosin Hcl Er]) 10 mg PO DAILY [facility] Last Admin: 03/26/20 08:17 Dose: Not Given Documented by: Ondansetron HCl (Ondansetron 4 Mg/2 Ml Vial) 4 mg IVP Q6HR PRN PRN Reason: Nausea / Vomiting Oxycodone HCl (Oxycodone 5 Mg Tablet) 5 mg PO Q4HR PRN PRN Reason: PAIN Last Admin: 03/24/20 17:19 Dose: 5 mg Documented by: Pantoprazole Sodium (Pantoprazole 40 Mg Tablet) 40 mg PO QDAC [facility] Last Admin: 03/26/20 06:00 Dose: 40 mg Documented by: Polyethylene Glycol (Polyethylene Glycol 3350 17 Gm Packet) 17 gm PO DAILY [facility] Last Admin: 03/26/20 08:30 Dose: 17 gm Documented by: Rivaroxaban (Rivaroxaban 15 Mg Tablet) 15 mg PO BIDWM [facility] Last Admin: 03/26/20 16:59 Dose: 15 mg Documented by: Saccharomyces Boulardii (Saccharomyces Boulardii 250 Mg Capsule) 250 mg PO BIDWM [facility] Last Admin: 03/26/20 16:58 Dose: 250 mg Documented by: Senna (Senna 8.6 Mg Tablet) 8.6 - 17.2 mg PO DAILY [facility] Last Admin: 03/26/20 08:33 Dose: Not Given Documented by: Sodium Chloride (Sodium Chloride Flush 0.9% 10 Ml Syringe) 10 ml IVP PRN PRN PRN Reason: NEEDED PER PROVIDER ORDERS Last Admin: 03/25/20 20:25 Dose: 10 ml Documented by: Sodium Chloride (Sodium Chloride Flush 0.9% 10 Ml Syringe) 10 ml IVP 0100,0900,1700 [facility] Last Admin: 03/26/20 16:59 Dose: 10 ml Documented by: Alfuzosin HCl [Alfuzosin HCl ER] 10 mg PO DAILY 07/11/19 Clopidogrel [Plavix] 75 mg PO DAILY 07/11/19 [place] 1,350 mg PO HS 07/11/19 Propranolol [Inderal] 10 mg PO DAILY 03/23/20 amLODIPine [Norvasc] 5 mg PO DAILY 03/23/20
[2020-03-26] MEDS: METOPROLOL TARTRATE 25 MG TABLET PO SCH ×2 (18:05→21:25)
[2020-03-26] MEDS: oxyCODONE 5 MG TABLET PO PRN (21:25)
[2020-03-26] MEDS: LITHIUM 150 MG CAPSULE PO SCH (21:26)
[2020-03-27] MEDS: SODIUM CHLORIDE FLUSH 0.9% 10 ML SYRINGE IVP SCH ×3 (00:13→16:11)
[2020-03-27] MEDS: ACETAMINOPHEN 325 MG TABLET PO PRN ×2 (00:13→04:38)
[2020-03-27] MEDS: hydrALAZINE INJ 20 MG/ML VIAL IVP PRN (00:15)
[2020-03-27] MEDS: oxyCODONE 5 MG TABLET PO PRN (02:54)
[2020-03-27] MEDS ORDERED: cloNIDine 0.1 MG TABLET PO ONE (04:04)
[2020-03-27] MEDS: HYDROmorphone 0.5 MG/0.5 ML SYRINGE IVP PRN ×2 (04:30→16:11)
[2020-03-27] MEDS: SODIUM CHLORIDE FLUSH 0.9% 10 ML SYRINGE IVP PRN (04:30)
[2020-03-27 05:21] LABS: BASOPHILS # (AUTO) 0.1 10^3/uL (0.0-0.1); BASOPHILS % (AUTO) 0.4 %; EOSINOPHILS # (AUTO) 0.3 10^3/uL (0.0-0.7); EOSINOPHILS % (AUTO) 2.2 %; HGB - HEMOGLOBIN 15.7 g/dL (14.0-18.0); LYMPHOCYTES # (AUTO) 1.4 10^3/uL (1.5-3.5); LYMPHOCYTES % (AUTO) 11.1 %; MEAN CORPUSCULAR HEMOGLOBIN 32.7 pg (27.0-31.0); MEAN CORPUSCULAR HGB CONC 33.9 g/dL (32.0-36.0); MEAN CORPUSCULAR VOLUME 96.5 fL (80.0-94.0); MEAN PLATELET VOLUME 9.8 fL (7.4-11.4); MONOCYTES # (AUTO) 0.8 10^3/uL (0.0-1.0); MONOCYTES % (AUTO) 6.1 %; NEUTROPHILS # (AUTO) 10.2 10^3/uL (1.5-6.6); NEUTROPHILS % (AUTO) 79.8 %; PLT - PLATELET COUNT 322 10^3/uL (130-450); RED CELL DISTRIBUTION WIDTH 12.6 % (12.0-15.0); WHITE BLOOD COUNT 12.8 x10^3/uL (4.8-10.8)
[2020-03-27 05:27] LABS: CALCIUM 10.8 mg/dL (8.5-10.3); CREATININE 1.2 mg/dL (0.6-1.2)
[2020-03-27] MEDS: PANTOPRAZOLE 40 MG TABLET PO SCH (06:16)
[2020-03-27] MEDS ORDERED: LORazepam 0.5 MG TABLET PO STA ×2 (08:16→11:12)
--- NOTE | 2020-03-27 08:26 | Ultrasound Report ---
PROCEDURE: Arterial Visceral Complete INDICATIONS: Resistant HTN and low GFR TECHNIQUE: Real time scanning was performed of both kidneys, followed by Color and pulsed Doppler in terrogation of the renal vessels. COMPARISON: Correlation is made with prior CT abdomen and pelvis 07/11/2019 FINDINGS: Aortic peak systolic velocity: Not obtained Right side: Fay-scale imaging: Kidney is 10.5 cm long. No hydronephrosis. No nephrolithiasis. Renal cortex i s normal in echogenicity. No suspicious solid renal masses. Exophytic cyst can be seen inferiorly m easuring up to 1.2 cm. Proximal renal artery peak systolic velocity: Not seen Mid renal artery peak systolic velocity: 90 cm/s. Distal renal artery peak systolic velocity: 66 cm/s. Renal vein: Patent, without thrombus. Peak renal/aortic ratio (RAR): Not obtained Left side: Fay-scale imaging: Kidney is 11.2 cm long. No hydronephrosis. No nephrolithiasis. Renal cortex i s normal in echogenicity. No suspicious solid renal masses. Multiple simple appearing cysts are see n, the largest measuring up to 2.7 cm. Proximal renal artery peak systolic velocity: Not obtained. Mid-renal artery peak systolic velocity: 80 cm/s. Distal renal artery peak systolic velocity: 115 cm/s. Renal vein: Patent, without thrombus. Peak renal/aortic ratio (RAR): Not obtained. This is a limited examination as the patient was unable to hold his respirations, secondary to pulmon brittney disease. This study is also limited by overlying bowel gas. IMPRESSION: Limited examination, without abnormally increased renal artery velocities to suggest renal artery penelope nosis. Reviewed by: Lukasz Hoff MD on 03/27/2020 7:25 AM [facility] Approved by: Lukasz Hoff MD on 03/27/2020 7:25 AM [facility] Station ID: [id number]
--- NOTE | 2020-03-27 08:30 | XRAY Report ---
PROCEDURE: Chest 1 View X-Ray INDICATIONS: sob TECHNIQUE: One view of the chest was acquired. COMPARISON: 03/23/2020, correlation is also made with chest CT 03/23/2020 FINDINGS: Surgical changes and devices: None. Lungs and pleura: No pleural effusions or pneumothorax. Lungs are clear. The previously seen inter stitial prominence is improved. Low lung volumes can be seen, causing a crowded appearance to the callum g markings. Mediastinum: Mediastinal contours appear normal. Heart size is normal. Bones and chest wall: No suspicious bony lesions. Overlying soft tissues appear unremarkable. IMPRESSION: Minimal interstitial prominence, which is improved from the prior. Reviewed by: Lukasz Hoff MD on 03/27/2020 7:29 AM [facility] Approved by: Lukasz Hoff MD on 03/27/2020 7:29 AM [facility] Station ID: [id number]
--- NOTE | 2020-03-27 08:52 | CT Report ---
PROCEDURE: HEAD WO INDICATIONS: headache, hypertension TECHNIQUE: Noncontrast 4.5 mm thick angled axial sections acquired from the foramen magnum to the vertex. For r adiation dose reduction, the following was used: automated exposure control, adjustment of mA and/or kV according to patient size. COMPARISON: None. FINDINGS: Image quality: Excellent. CSF spaces: Basal cisterns are patent. No extra-axial fluid collections. Ventricles are normal in size and shape. Brain: No midline shift. No intracranial masses or hemorrhage. Fay-white matter interface is norm al. Skull and face: Calvarium and visualized facial bones are intact, without suspicious lesions. Sinuses: Visualized sinuses and mastoids are clear. IMPRESSION: Unremarkable intracranial study for age, without acute intracranial hemorrhage. Reviewed by: Lukasz Hoff MD on 03/27/2020 7:51 AM [facility] Approved by: Lukasz Hoff MD on 03/27/2020 7:51 AM [facility] Station ID: [id number]
[2020-03-27] MEDS ORDERED: amLODIPine 5 MG TABLET PO SCH (09:00)
[2020-03-27] MEDS: RIVAROXABAN 15 MG TABLET PO SCH ×2 (09:07→16:11)
[2020-03-27] MEDS: cefTRIAXone 2 GM in SODIUM CHLORIDE 0.9% MINIBAG 100 ML IV SCH (09:07)
[2020-03-27] MEDS: SACCHAROMYCES BOULARDII 250 MG CAPSULE PO SCH ×2 (09:07→16:11)
[2020-03-27] MEDS: polyethylene glycoL 3350 17 GM PACKET PO SCH (09:08)
[2020-03-27] MEDS: DOCUSATE SODIUM 250 MG CAPSULE PO SCH (09:08)
[2020-03-27] MEDS: SENNA 8.6 MG TABLET PO SCH (09:08)
[2020-03-27] MEDS: METOPROLOL TARTRATE 25 MG TABLET PO SCH ×2 (09:09→20:39)
[2020-03-27] MEDS: ALFUZOSIN HCL 10 MG PO SCH (09:14)
[2020-03-27] MEDS ORDERED: RIVAROXABAN 15 MG TABLET PO STA (11:12)
[2020-03-27] MEDS ORDERED: METOPROLOL TARTRATE 25 MG TABLET PO STA (11:22)
--- NOTE | 2020-03-27 20:05 | PROVIDER PROGRESS NOTE ---
Assessment/Plan - Problem List (1) Uncontrolled hypertension Assessment/Plan: This patient was on Norvasc 5 mg and Propranolol only 10 mg daily before being admitted. Here, he has not had a controlled blood pressure yet. Metoprolol has been started. Norvasc was increased to 10 mg and he has received IV hydralazine several times. Last night he got 1 dose of p.o. clonidine. The concern was for renal artery stenosis given his elevated creatinine at such a young age and this resistant hypertension. Renal ultrasound was done and did not show renal artery stenosis. We will add topical clonidine patch q week, to his management. (2) Headache Assessment/Plan: This started about 1-1/2 days ago, after receiving the vasodilator meds therefore it was presumed to be from that however he described "the worst headache he has ever had". Because of this he underwent a head CT today. The head CT did not show any acute findings. Dilaudid has treated his pain but now he is hyper somnolent. We will de-escalate the narcotic dosing (3) Vomiting Assessment/Plan: This morning there was vomiting just after swallowing all of his usual meds, they needed to be redosed. I suspect the new vomiting is from narcotic side effect. Will de-escalate the Dilaudid dose (4) Respiratory failure with hypoxia Assessment/Plan: He is saturating well at rest on room air. With ambulation yesterday there was desaturation, today he has had minimal activity because of the somnolence. He will need repeat walking oximetry test before discharge. (5) Pulmonary emboli Qualifiers: Pulmonary embolism type: multiple subsegmental (without acute cor pulmonale) Qualified Code(s): I26.94 - Multiple subsegmental pulmonary emboli without acut e cor pulmonale Assessment/Plan: He has extensive pulmonary emboli. Anticoagulation has been started now with Xarelto 15 mg twice daily and after several days to go to 20 mg daily. Because of the presence of PE and DVT, he will need work-up for coagulation abnormalities, after discharge. (6) CAP (community acquired pneumonia) Assessment/Plan: He is getting antibiotics for this. This was also adding to his desaturations. Continue present management. (7) CKD (chronic kidney disease) Assessment/Plan: Review of old records show that he has had CKD with creatinines of 1.2 in the past. Since admission his creatinine has been better every day while here. (8) Bipolar 1 disorder Assessment/Plan: The lithium level was stable. He is on his home dose of lithium (9) GERD (gastroesophageal reflux disease) Assessment/Plan: He is getting his GERD meds - Current Meds Current Meds: Current Medications Generic Name Dose Route Start Last Admin Trade Name Freq PRN Reason Stop Dose Admin Acetaminophen 650 mg 03/23/20 13:49 03/27/20 04:38 Acetaminophen 325 Mg Tablet PO 650 mg Q4HR PRN Administration Pain 1 to 4 Docusate Sodium 250 - 500 mg 03/26/20 09:00 03/27/20 09:08 Docusate Sodium 250 Mg Capsule PO 250 mg DAILY SHANNON Administration Guaifenesin/Codeine Phosphate 5 ml 03/25/20 00:07 03/25/20 20:16 Guaifenesin/Codeine 5 Ml Udc PO 5 ml Q6HR PRN Administration Cough Hydralazine HCl 10 mg 03/26/20 15:58 03/27/20 00:15 Hydralazine Inj 20 Mg/Ml Vial IVP 10 mg Q4H PRN Administration Hypertensive Emergency Hydromorphone HCl 0.5 mg 03/27/20 04:05 03/27/20 16:11 Hydromorphone 0.5 Mg/0.5 Ml Syringe IVP 0.5 mg Q2H PRN Administration PAIN Ceftriaxone Sodium 2 gm/ 100 mls @ 200 mls/hr 03/24/20 09:00 03/27/20 09:30 Sodium Chloride IV 03/28/20 09:29 Infused DAILY SHANNON Infusion [place] Carbonate 1,350 mg 03/23/20 21:00 03/26/20 21:26 [place] 150 Mg Capsule PO 1,350 mg HS SHANNON Administration Metoprolol Tartrate 25 mg 03/26/20 17:35 03/27/20 09:09 Metoprolol Tartrate 25 Mg Tablet PO 25 mg BID SHANNON Administration Non-Formulary Medication 10 mg 03/24/20 09:00 03/27/20 09:14 Alfuzosin Hcl [Alfuzosin Hcl Er] PO Not Given DAILY SHANNON Ondansetron HCl 4 mg 03/23/20 13:49 03/27/20 09:18 Ondansetron 4 Mg/2 Ml Vial IVP 4 mg Q6HR PRN Administration Nausea / Vomiting Oxycodone HCl 5 mg 03/24/20 09:14 03/27/20 02:54 Oxycodone 5 Mg Tablet PO 5 mg Q4HR PRN Administration PAIN Pantoprazole Sodium 40 mg 03/23/20 17:33 03/27/20 06:16 Pantoprazole 40 Mg Tablet PO 40 mg QDAC SHANNON Administration Polyethylene Glycol 17 gm 03/25/20 09:00 03/27/20 09:08 Polyethylene Glycol 3350 17 Gm Packet PO 17 gm DAILY SHANNON Administration Rivaroxaban 15 mg 03/25/20 15:30 03/27/20 16:11 Rivaroxaban 15 Mg Tablet PO 15 mg BIDWM SHANNON Administration Saccharomyces Boulardii 250 mg 03/26/20 08:51 03/27/20 16:11 Saccharomyces Boulardii 250 Mg Capsule PO 250 mg BIDWM SHANNON Administration Senna 8.6 - 17.2 mg 03/26/20 09:00 03/27/20 09:08 Senna 8.6 Mg Tablet PO 8.6 mg DAILY SHANNON Administration Sodium Chloride 10 ml 03/23/20 13:49 03/27/20 04:30 Sodium Chloride Flush 0.9% 10 Ml Syringe IVP 10 ml PRN PRN Administration NEEDED PER PROVIDER ORDERS Sodium Chloride 10 ml 03/23/20 17:00 03/27/20 16:11 Sodium Chloride Flush 0.9% 10 Ml Syringe IVP 10 ml 0100,0900,1700 SHANNON Administration - Lab Result Fish Bone Diagrams: 03/27/20 04:34 03/27/20 04:34 - Additional Planning My Orders: My Active Orders 03/27/20 04:05 HYDROmorphone 0.5MG SYRINGE [Dilaudid Inj Syringe] 0.5 mg IVP Q2H PRN 03/27/20 21:00 cloNIDine 0.1 MG PATCH [[id number]] 1 patch TOP Q7D Subjective - Subjective Patient Reports: Feeling Better, Resting Comfortably (His headache was rated 6/10 today and he got Dilaudid which helped, he is now sound asleep.) Objective Vital Signs: Vital Signs - 24 hr 03/26/20 03/26/20 03/27/20 20:20 21:00 00:15 Temperature Heart Rate 62 Heart Rate [ 80 Monitoring electrodes] Respiratory 16 Rate Blood Pressure 161/98 H Blood Pressure [Left Brachial artery] Blood Pressure 150/90 H [Right Brachial artery] O2 Saturation 03/27/20 03/27/20 03/27/20 00:16 00:26 01:27 Temperature 36.4 C L Heart Rate Heart Rate [ 66 60 Monitoring electrodes] Respiratory 18 Rate Blood Pressure Blood Pressure [Left Brachial artery] Blood Pressure 161/87 H 159/102 H 168/94 H [Right Brachial artery] O2 Saturation 95 03/27/20 03/27/20 03/27/20 01:30 04:48 06:17 Temperature 36.6 C Heart Rate Heart Rate [ 67 55 L Monitoring electrodes] Respiratory 20 Rate Blood Pressure 168/64 H Blood Pressure 175/108 H [Left Brachial artery] Blood Pressure 157/108 H [Right Brachial artery] O2 Saturation 95 03/27/20 03/27/20 03/27/20 09:00 09:09 11:36 Temperature 36.6 C Heart Rate Heart Rate [ 59 L Monitoring electrodes] Respiratory 20 Rate Blood Pressure 171/113 H 178/109 H Blood Pressure [Left Brachial artery] Blood Pressure 166/89 H [Right Brachial artery] O2 Saturation 97 03/27/20 03/27/20 03/27/20 11:39 13:00 16:54 Temperature 36.5 C 36.9 C Heart Rate Heart Rate [ 65 65 65 Monitoring electrodes] Respiratory 20 18 Rate Blood Pressure Blood Pressure 178/109 H [Left Brachial artery] Blood Pressure 155/104 H 147/84 H [Right Brachial artery] O2 Saturation 98 96 03/27/20 19:45 Temperature 36.6 C Heart Rate Heart Rate [ 63 Monitoring electrodes] Respiratory 16 Rate Blood Pressure Blood Pressure [Left Brachial artery] Blood Pressure 153/99 H [Right Brachial artery] O2 Saturation 96 Oxygen O2 Source Nasal cannula I&O (Last 24 Hrs): Intake and Output Totals x24h 03/25/20 03/26/20 03/27/20 23:59 23:59 23:59 Intake Total 3846.973 3400 220 Output Total 4325 3125 2100 Balance -478.027 275 -1880 General: Other (Sleeping flat in bed) HEENT: Mucous membr. moist/pink Neuro: Other (Sleepy, earlier today he was alert and oriented) Cardiovascular: Regular rate Respiratory: No respiratory distress Abdomen: Soft Extremities: No edema - Results Results: Laboratory Results WBC 12.8 x10^3/uL (4.8-10.8) H 03/27/20 04:34 RBC 4.80 10^6/uL (4.70-6.10) 03/27/20 04:34 Hgb 15.7 g/dL (14.0-18.0) 03/27/20 04:34 Hct 46.3 % (42.0-52.0) 03/27/20 04:34 MCV 96.5 fL (80.0-94.0) H 03/27/20 04:34 MCH 32.7 pg (27.0-31.0) H 03/27/20 04:34 MCHC 33.9 g/dL (32.0-36.0) 03/27/20 04:34 RDW 12.6 % (12.0-15.0) 03/27/20 04:34 Plt Count 322 10^3/uL (130-450) 03/27/20 04:34 MPV 9.8 fL (7.4-11.4) 03/27/20 04:34 Neut # (Auto) 10.2 10^3/uL (1.5-6.6) H 03/27/20 04:34 Lymph # (Auto) 1.4 10^3/uL (1.5-3.5) L 03/27/20 04:34 [place] # (Auto) 0.8 10^3/uL (0.0-1.0) 03/27/20 04:34 Eos # (Auto) 0.3 10^3/uL (0.0-0.7) 03/27/20 04:34 Baso # (Auto) 0.1 10^3/uL (0.0-0.1) 03/27/20 04:34 Absolute Nucleated RBC 0.00 x10^3/uL 03/27/20 04:34 Nucleated RBC % 0.0 /100WBC 03/27/20 04:34 Whole Blood INR 0.9 (0.8-1.2) 03/23/20 09:40 D-Dimer 835.4 ng/mL (200.0-255.0) H 03/23/20 09:40 Anti-Xa Level 0.3 U/mL (-0.7) 03/25/20 04:00 Sodium 137 mmol/L (135-145) 03/27/20 04:34 Potassium 4.1 mmol/L (3.5-5.0) 03/27/20 04:34 Chloride 105 mmol/L (101-111) 03/27/20 04:34 Carbon Dioxide 24 mmol/L (21-32) 03/27/20 04:34 Anion Gap 8.0 (6-13) 03/27/20 04:34 BUN 19 mg/dL (6-20) 03/27/20 04:34 Creatinine 1.2 mg/dL (0.6-1.2) 03/27/20 04:34 Estimated GFR (MDRD) 62 (>89) L 03/27/20 04:34 Glucose 120 mg/dL (70-100) H 03/27/20 04:34 Lactic Acid 1.3 mmol/L (0.5-2.2) 03/23/20 15:46 Calcium 10.8 mg/dL (8.5-10.3) H 03/27/20 04:34 Total Bilirubin 1.0 mg/dL (0.2-1.0) 03/23/20 09:40 AST 25 IU/L (10-42) 03/23/20 09:40 ALT 32 IU/L (10-60) 03/23/20 09:40 Alkaline Phosphatase 88 IU/L (42-121) 03/23/20 09:40 Troponin I High Sens 62.8 ng/L (2.3-19.7) H* 03/23/20 13:18 B-Natriuretic Peptide 102 pg/mL (5-100) H 03/23/20 09:40 Total Protein 7.5 g/dL (6.7-8.2) 03/23/20 09:40 Albumin 3.9 g/dL (3.2-5.5) 03/23/20 09:40 Globulin 3.6 g/dL (2.1-4.2) 03/23/20 09:40 Albumin/Globulin Ratio 1.1 (1.0-2.2) 03/23/20 09:40 Lipase 36 U/L (22-51) 03/23/20 09:40 Nasal Adenovirus (PCR) NOT DETECTED 03/23/20 12:00 Nasal B. parapertussis DNA (PCR) NOT DETECTED 03/23/20 12:00 Nasal Coronavir 229E PCR NOT DETECTED 03/23/20 12:00 Nasal Coronavir HKU1 PCR NOT DETECTED 03/23/20 12:00 Nasal Coronavir NL63 PCR NOT DETECTED 03/23/20 12:00 Nasal Coronavir OC43 PCR NOT DETECTED 03/23/20 12:00 Nasal Enterovir/Rhinovir PCR NOT DETECTED 03/23/20 12:00 Nasal Influenza B PCR NOT DETECTED 03/23/20 12:00 Nasal Influenza A PCR NOT DETECTED 03/23/20 12:00 Nasal Parainfluen 1 PCR NOT DETECTED 03/23/20 12:00 Nasal Parainfluen 2 PCR NOT DETECTED 03/23/20 12:00 Nasal Parainfluen 3 PCR NOT DETECTED 03/23/20 12:00 Nasal Parainfluen 4 PCR NOT DETECTED 03/23/20 12:00 Nasal RSV (PCR) NOT DETECTED 03/23/20 12:00 Nasal B.pertussis DNA PCR NOT DETECTED 03/23/20 12:00 Nasal C.pneumoniae (PCR) NOT DETECTED 03/23/20 12:00 [place] Human Metapneumo PCR NOT DETECTED 03/23/20 12:00 Nasal M.pneumoniae (PCR) NOT DETECTED 03/23/20 12:00 Nasal SARS-CoV-2 (PCR) NOT DETECTED 03/23/20 12:00 Last Dose Date Not Reportable 03/23/20 14:53 Last Dose Time Not Reportable 03/23/20 14:53 [place] 0.61 mmol/L 03/23/20 14:53 Sepsis Event Note (H) - Evaluation Current Stage of Sepsis: Ruled out
[2020-03-27] MEDS: LITHIUM 150 MG CAPSULE PO SCH (20:39)
[2020-03-27] MEDS ORDERED: cloNIDine 0.1 MG PATCH TOP SCH (21:00)
[2020-03-28] MEDS: SODIUM CHLORIDE FLUSH 0.9% 10 ML SYRINGE IVP SCH ×2 (00:52→08:45)
[2020-03-28 05:31] LABS: BASOPHILS % (AUTO) 0.3 %; EOSINOPHILS # (AUTO) 0.1 10^3/uL (0.0-0.7); HGB - HEMOGLOBIN 15.1 g/dL (14.0-18.0); LYMPHOCYTES # (AUTO) 1.4 10^3/uL (1.5-3.5); LYMPHOCYTES % (AUTO) 10.2 %; MEAN CORPUSCULAR HEMOGLOBIN 32.1 pg (27.0-31.0); MEAN CORPUSCULAR HGB CONC 32.9 g/dL (32.0-36.0); MEAN CORPUSCULAR VOLUME 97.5 fL (80.0-94.0); MEAN PLATELET VOLUME 9.7 fL (7.4-11.4); MONOCYTES % (AUTO) 7.4 %; NEUTROPHILS # (AUTO) 11.3 10^3/uL (1.5-6.6); NEUTROPHILS % (AUTO) 80.6 %; PLT - PLATELET COUNT 323 10^3/uL (130-450); RED BLOOD COUNT 4.71 10^6/uL (4.70-6.10); RED CELL DISTRIBUTION WIDTH 12.4 % (12.0-15.0)
[2020-03-28 05:51] LABS: CALCIUM 10.4 mg/dL (8.5-10.3); CREATININE 1.4 mg/dL (0.6-1.2)
[2020-03-28] MEDS: PANTOPRAZOLE 40 MG TABLET PO SCH (06:51)
--- NOTE | 2020-03-28 08:32 | DISCHARGE SUMMARY ---
Discharge Summary Admit Date: 03/23/20 Discharge Date: 03/28/20 Discharging Provider: Anne Longoria Condition at Discharge: Stable Discharge Disposition: 01 Home, Self Care - DIAGNOSES Admission Diagnoses: Pulmonary emboli Pneumonia Respiratory failure with hypoxia Elevated troponin Hypertension Bipolar 1 disorder GERD Discharge Diagnoses with Status of Each Condition: Pulmonary emboli: Ongoing patient will need Xarelto for life because this is a second blood clot Pneumonia: Resolved Respiratory failure with hypoxia: Resolved Elevated troponin: Resolved this was secondary to pulmonary emboli Hypertension: Chronic Bipolar 1 disorder: Chronic GERD: Chronic - HPI History of Present Illness: HPI Comment/Other: This is 59 years old male with a past medical history of hypertension, hyperlipidemia, GERD, history of right lower extremity DVT, BPH, Bipolar, Who present to ER complain shortness of breathing. Patient reported he has shortness of breathing about couple weeks but this 2- 3 days he feels very short of breathing, even difficulty to go to the bathroom. He denies fever or chill, Chest pain. he report he have chronic cough from his GERD. His COVID-19 test is negative. He report reported 10 years ago he had a DVT on his right lower extremity, But the patient has no any anticoagulation medicine in his home medication list. Routine laboratory tests that show he had a elevated troponin but continued troponin flat, EKG did not the suggestion of myocardial ischemia or ST variation. Creatinine 1.3 is at his baseline. Patient had slightly elevated WBC at 11, D-dimer 830. CTA of the chest show Fairly extensive Pulmonary emboli in distal bilaterally main pulmonary artery extending to Segmental and subsegmental branches of the bilateral pulmonary arteries, Scattered area of patched pneumonitis, chest x-ray indicated pneumonia. Ultrasound of bilaterally Lower extremity Show chronic right lower extremity DVT and an acute left lower extremity DVT. Given above patient medical condition, hospitalist team was consulted for admission. Discussed the care goal with the patient, patient requests full code - HOSPITAL COURSE Hospital Course: The patient was started on a heparin drip per the PE protocol. After authorization from the patient's insurance he was switched to Xarelto. The patient was advised he would need this indefinitely considering its his second blood clot. For concern about heart strain the patient underwent 2D echocardiogram. This w as unremarkable. His ejection fraction was 60 to 65%. The patient's hospital stay was unremarkable however 2 days to discharge the patient's diastolic blood pressure stayed persistently elevated at greater than 100. He was treated with antihypertensives which included Norvasc 5 mg, propanolol 10 mg daily, metoprolol was used during his hospital stay. He also received hydralazine IV. The Norvasc was subsequently increased from 5 to 10 mg. The patient also received clonidine patch and subsequently oral clonidine. This was not successful in controlling his blood pressure. He underwent a renal ultrasound for concern about renal artery stenosis. This was negative. On the day before discharge he complained of experiencing a terrible headache and expressed that he felt like he was going to . Review of the CT angio of the chest did not show any dissections or aneurysms. The patient underwent a CT of his brain which was also unremarkable for any bleed. The patient was very anxious on the day and received a dose of Ativan. He slept through the night and the following day denied any complaints consequently he was discharged on the clinically stable state. He was advised to follow-up with his primary care physician within 7 days. He was given a 48-hour worth supply of oxygen. For his pneumonia he was treated with Rocephin and azithromycin in the hospital. Upon discharge she was given Augmentin 875/125 mg to take 1 tablet p.o. twice daily for 5 days. His creatinine was 1.4 on the day of discharge he has history of chronic kidney disease however he was advised to have a BMP done by his primary care on the day of follow-up just to monitor and ensure it is not worsening. The patient expressed understanding and was agreeable with the plan. - ALLERGIES Allergies/Adverse Reactions: Allergies Allergy/AdvReac Type Severity Reaction Status Date / Time No Known Drug Allergies Allergy Verified 07/11/19 16:57 - MEDICATIONS Home Medications: Ambulatory Orders Medication Instructions Recorded Confirmed Alfuzosin HCl [Alfuzosin HCl ER] 10 mg PO DAILY 07/11/19 03/23/20 Clopidogrel [Plavix] 75 mg PO DAILY 07/11/19 03/23/20 [place] 1,350 mg PO HS 07/11/19 03/23/20 Propranolol [Inderal] 10 mg PO DAILY 03/23/20 03/23/20 amLODIPine [Norvasc] 5 mg PO DAILY 03/23/20 03/23/20 Rivaroxaban [Xarelto] 15 mg PO BID #42 tablet 03/25/20 Amox/Clav 875/125 [Augmentin] 1 each PO Q12H 5 Days #10 tablet 03/28/20 - PHYSICAL EXAM AT DISCHARGE General Appearance: positive: No acute distress, Alert Eyes Bilateral: positive: PERRL, EOMI ENT: positive: No signs of dehydration Neck: positive: No JVD, Trachea midline Cardiovascular: positive: Regular rate & rhythm, No murmur Abdomen: positive: Non-tender, Nml bowel sounds, No distention Back: positive: Nml inspection Skin: positive: Color nml Extremities: positive: Non-tender, Nml appearance, No pedal edema Neurologic/Psychiatric: positive: Oriented x3, Mood/affect nml - LABS Result Diagrams: 03/28/20 04:44 03/28/20 04:44 - SEPSIS Current Stage of Sepsis: Ruled out
--- NOTE | 2020-03-28 08:35 | Discharge Plan ---
Discharge Plan Problem Reviewed?: Yes Disposition: Home, Self Care Condition: Stable Prescriptions: Amox/Clav 875/125 [Augmentin] 1 each PO Q12H 5 Days #10 tablet Rivaroxaban [Xarelto] 15 mg PO BID #42 tablet Diet: Low Sodium Activity Restrictions: No Restrictions Shower Restrictions: No Driving Restrictions: No Health Concerns: You were admitted 5 days ago with difficulty breathing. Work-up in the ED included a CT scan of your chest which showed that you had a pulmonary embolism. It also suggested that you may have pneumonia. As a result you were started on heparin drip and treated over the course of this days. You were also placed on antibiotics Rocephin and azithromycin. By the time of discharge your breathing had improved significantly. You are being sent home on Xarelto 15 mg p.o. twice daily to take with meals. This is the second occurrence of blood clot in your life so you would be on this blood thinner Xarelto indefinitely. You are expected to follow-up with your primary care physician within 1 week. It is expected that your primary care physician will continue managing the Xarelto. You will also be sent home with Augmentin which is an antibiotic 875/125 mg. You are to take 1 tablet by mouth every 12 hours for a total of 5 days. You were also sent home with 2 days worth of supplemental oxygen to use if and as you need. You also had significant elevated blood pressures while in the hospital. You were treated with metoprolol 25 mg p.o. twice daily and you had a clonidine patch placed. Upon discharge you will be sent home with propranolol 10 mg p.o. daily which is your home medication and amlodipine 5 mg p.o. daily. Work-up for your high blood pressure included a CT scan of your brain, and renal ultrasound of your kidneys/renal arteries. All of these tests were unremarkable. On the day of discharge your creatinine which is a reflection of your kidney function was 1.4. You are advised to follow-up with your primary care physician within a week and it is expected that they will order a BMP for monitoring of your renal function. All of this was explained to you and you expressed understanding and are agreeable with the plan. Plan of Treatment: You were admitted 5 days ago with difficulty breathing. Work-up in the ED included a CT scan of your chest which showed that you had a pulmonary embolism. It also suggested that you may have pneumonia. As a result you were started on heparin drip and treated over the course of this days. You were also placed on antibiotics Rocephin and azithromycin. By the time of discharge your breathing had improved significantly. You are being sent home on Xarelto 15 mg p.o. twice daily to take with meals. This is the second occurrence of blood clot in your life so you would be on this blood thinner Xarelto indefinitely. You are expected to follow-up with your primary care physician within 1 week. It is expected that your primary care physician will continue managing the Xarelto. You will also be sent home with Augmentin which is an antibiotic 875/125 mg. You are to take 1 tablet by mouth every 12 hours for a total of 5 days. You were also sent home with 2 days worth of supplemental oxygen to use if and as you need. You also had significant elevated blood pressures while in the hospital. You were treated with metoprolol 25 mg p.o. twice daily and you had a clonidine patch placed. Upon discharge you will be sent home with propranolol 10 mg p.o. daily which is your home medication and amlodipine 5 mg p.o. daily. Work-up for your high blood pressure included a CT scan of your brain, and renal ultrasound of your kidneys/renal arteries. All of these tests were unremarkable. On the day of discharge your creatinine which is a reflection of your kidney function was 1.4. You are advised to follow-up with your primary care physician within a week and it is expected that they will order a BMP for monitoring of your renal function. All of this was explained to you and you expressed understanding and are agreeable with the plan. Care Goals: You were admitted 5 days ago with difficulty breathing. Work-up in the ED included a CT scan of your chest which showed that you had a pulmonary embolism. It also suggested that you may have pneumonia. As a result you were started on heparin drip and treated over the course of this days. You were also placed on antibiotics Rocephin and azithromycin. By the time of discharge your breathing had improved significantly. You are being sent home on Xarelto 15 mg p.o. twice daily to take with meals. This is the second occurrence of blood clot in your life so you would be on this blood thinner Xarelto indefinitely. You are expected to follow-up with your primary care physician within 1 week. It is expected that your primary care physician will continue managing the Xarelto. You will also be sent home with Augmentin which is an antibiotic 875/125 mg. You are to take 1 tablet by mouth every 12 hours for a total of 5 days. You were also sent home with 2 days worth of supplemental oxygen to use if and as you need. You also had significant elevated blood pressures while in the hospital. You were treated with metoprolol 25 mg p.o. twice daily and you had a clonidine patch placed. Upon discharge you will be sent home with propranolol 10 mg p.o. daily which is your home medication and amlodipine 5 mg p.o. daily. Work-up for your high blood pressure included a CT scan of your brain, and renal ultrasound of your kidneys/renal arteries. All of these tests were unremarkable. On the day of discharge your creatinine which is a reflection of your kidney function was 1.4. You are advised to follow-up with your primary care physician within a week and it is expected that they will order a BMP for monitoring of your renal function. All of this was explained to you and you expressed understanding and are agreeable with the plan. Assessment: All of this was explained to you and you expressed understanding and are agreeable with the plan. No Smoking: If you smoke, Please STOP! Call for help. Follow-up with: Pierre Garibay MD [Primary Care Provider] -
[2020-03-28] MEDS: SACCHAROMYCES BOULARDII 250 MG CAPSULE PO SCH (08:44)
[2020-03-28] MEDS: DOCUSATE SODIUM 250 MG CAPSULE PO SCH (08:44)
[2020-03-28] MEDS: SENNA 8.6 MG TABLET PO SCH (08:44)
[2020-03-28] MEDS: RIVAROXABAN 15 MG TABLET PO SCH (08:44)
[2020-03-28] MEDS: polyethylene glycoL 3350 17 GM PACKET PO SCH (08:44)
[2020-03-28] MEDS: ALFUZOSIN HCL 10 MG PO SCH (08:45)
[2020-03-28] MEDS: cefTRIAXone 2 GM in SODIUM CHLORIDE 0.9% MINIBAG 100 ML IV SCH (08:45)
[2020-03-28] MEDS ORDERED: HYDROmorphone 0.5 MG/0.5 ML SYRINGE IVP PRN (09:00)
[2020-03-28] MEDS: METOPROLOL TARTRATE 25 MG TABLET PO SCH (10:30)
[2020-03-28 12:24] VITALS: BP 137/94
== END 2020-03-28 14:38 | disposition home or self-care (01) | DRG 175 ==
LOC: ED 08:44 → MS3 13:49
PROVIDERS: ADMIT Nurse Practitioner Gerontology; ATTEND Internal Medicine
DX: I26.94 Multiple subsegmental thrombotic pulmonary emboli without acute cor pulmonale (principal); J18.9 Pneumonia, unspecified organism; J96.91 Respiratory failure, unspecified with hypoxia; I82.432 Acute embolism and thrombosis of left popliteal vein; I82.531 Chronic embolism and thrombosis of right popliteal vein; I12.9 Hypertensive chronic kidney disease with stage 1 through stage 4 chronic kidney disease, or unspecified chronic kidney disease; N18.9 Chronic kidney disease, unspecified; I27.20 Pulmonary hypertension, unspecified; F31.9 Bipolar disorder, unspecified; R51.9 Headache, unspecified; K21.9 Gastro-esophageal reflux disease without esophagitis; E78.5 Hyperlipidemia, unspecified; N40.0 Benign prostatic hyperplasia without lower urinary tract symptoms; Z20.822 Contact with and (suspected) exposure to COVID-19; Z79.02 Long term (current) use of antithrombotics/antiplatelets
CPT/HCPCS: 0202U; 36415; 70450; 71045; 71275; 80048; 80053; 80178; 83605; 83690; 83880; 84484; 85025; 85379; 85520; 85610; 87040; 93005; 93306; 93970; 93975; 94640; 94761; 96372; 99285; A9270; J1170; J1650; Q9967